=== PATIENT | male | born 1980 | race Two or more races ===

== ENCOUNTER 2020-05-03 11:39 | Outpatient (REF) | payer MEDICARE, MEDICAID, SELFPAY ==
--- NOTE | ~2020-05-03 | XR_ITS ---
EXAMINATION: XR SHOULDER, RIGHT CLINICAL INFORMATION: Right shoulder pain. COMPARISON: None TECHNIQUE: Four views of the right shoulder. FINDINGS: The bones and soft tissues are normal. No fracture. Glenohumeral and acromioclavicular alignment is anatomic with normal joint space. No abnormal soft tissue calcifications. XR/XR shoulder RT min 2V IMPRESSION: Normal right shoulder.
== END 2020-05-03 11:40 | disposition home or self-care (01) ==
LOC: HO.XRAY 11:39
PROVIDERS: PCP Internal Medicine; Visit Provider Internal Medicine
DX: M25.511 Pain in right shoulder (principal)
CPT/HCPCS: 73030

== ENCOUNTER 2020-06-27 07:37 | Outpatient (REF) | payer MEDICARE, MEDICAID, SELFPAY ==
--- NOTE | ~2020-06-27 | XR_ITS ---
EXAMINATION: XR HAND, RIGHT CLINICAL INFORMATION: Pain COMPARISON: Previous x-ray August 2019 TECHNIQUE: PA, lateral, and oblique views of the right hand. FINDINGS: Bone alignment is normal. No fracture or dislocation is seen. Joint spaces are normal. Soft tissues are normal. XR/XR hand RT min 3V IMPRESSION: Normal right hand.
== END 2020-06-27 07:38 | disposition home or self-care (01) ==
LOC: HO.HOSX 07:37
PROVIDERS: Visit Provider Physician Assistant
DX: R20.0 Anesthesia of skin (principal); R20.2 Paresthesia of skin
CPT/HCPCS: 73130; 99202

== ENCOUNTER 2020-07-13 13:15 | Outpatient (REF) | payer MEDICARE, MEDICAID, SELFPAY ==
[2020-07-16 17:06] LABS: TS Negative Control Passed; TS Panel A 0; TS Panel B 3; TS Positive Control Passed; TSpotTB Negative (SeeBelow)
== END 2020-07-13 13:16 | disposition home or self-care (01) ==
LOC: HO.LAB 13:15
PROVIDERS: PCP Internal Medicine; Visit Provider Internal Medicine
DX: Z11.1 Encounter for screening for respiratory tuberculosis (principal)
CPT/HCPCS: 36415; 86481

== ENCOUNTER 2020-08-02 10:05 | Outpatient (REF) | payer MEDICARE, MEDICAID, SELFPAY ==
[2020-08-02 11:02] LABS: MANUAL DIFF FLAG NO
[2020-08-02 11:19] LABS: Basophils Absolute Auto 0.1 X10*3/uL (0.0-0.2); Basophils Percent Auto 1.9 % (0-2); Eosinophils Absolute Auto 0.3 X10*3/uL (0.0-0.4); Eosinophils Percent Auto 6.3 % (0-4); Hematocrit 41.2 % (42-52); Hemoglobin 13.4 g/dl (14.0-18.0); Imm Gran Abs Auto 0.01 X10*3/uL (0.00-0.03); Imm Gran Pct Auto 0.2 % (0.0-0.4); Lymphocytes Absolute Auto 1.7 X10*3/uL (1.2-4.9); Lymphocytes Percent Auto 38.5 % (20-40); Mean Corpuscular HGB Conc 32.5 g/dl (31.0-36.0); Mean Corpuscular Hemoglobin 32.2 pg (27.0-33.0); Mean Platelet Volume 11.9 fL (9.4-12.4); Monocytes Absolute Auto 0.4 X10*3/uL (0.1-1.2); Monocytes Percent Auto 9.6 % (2-11); Neutrophils Absolute Auto 1.9 X10*3/uL (2.0-8.3); Neutrophils Percent Auto 43.5 % (45-73); Platelet Count 192 X10*3/uL (160-400); Red Blood Count 4.16 X10*6/uL (4.60-5.80); Red Cell Distribution Width 11.8 % (11.0-16.0); White Blood Count 4.3 X10*3/uL (4.8-10.8)
[2020-08-02 11:28] LABS: Alanine Aminotransferase 20 U/L (0-40); Albumin Level 4.5 g/dL (3.5-5.0); Alkaline Phosphatase 57 U/L (39-117); Anion Gap 12 (12-20); Aspartate Amino Transferase 22 U/L (5-37); Bilirubin Total 0.8 mg/dL (0.0-1.0); Blood Urea Nitrogen 25 mg/dL (9-16); Calcium 9.5 mg/dL (8.4-10.2); Carbon Dioxide 27 mmol/L (22-29); Chloride 106 mmol/L (96-108); Cholesterol 154 mg/dL; Estimated Glomerular Filt Rate > 60; Glucose Fasting 100 mg/dL (60-99); HDL Cholesterol 71 mg/dL; LDL Cholesterol Calculated 74 mg/dl; Potassium 4.7 mmol/L (3.3-5.1); Sodium 140 mmol/L (135-145); Total Protein 6.7 g/dL (6.5-8.0); Triglycerides 48 mg/dL
[2020-08-02 11:50] LABS: Thyroid Stimulating Hormone 0.61 uIU/mL (0.32-4.0)
== END 2020-08-02 10:06 | disposition home or self-care (01) ==
LOC: HO.LAB 10:05
PROVIDERS: PCP Internal Medicine; Visit Provider Internal Medicine
DX: Z00.00 Encounter for general adult medical examination without abnormal findings (principal); E03.9 Hypothyroidism, unspecified; E11.9 Type 2 diabetes mellitus without complications
CPT/HCPCS: 36415; 80053; 80061; 84443; 85025

== ENCOUNTER 2020-10-11 11:04 | Outpatient (REF) | payer MEDICARE, MEDICAID, SELFPAY ==
[2020-10-11 12:32] LABS: Erythrocyte Sedimentation Rate 2 MM/HR (0-15)
[2020-10-12 14:41] LABS: Lyme Abs Screen <0.90 index
== END 2020-10-11 11:05 | disposition home or self-care (01) ==
LOC: HO.LAB 11:04
PROVIDERS: PCP Internal Medicine; Visit Provider Internal Medicine
DX: M25.50 Pain in unspecified joint (principal)
CPT/HCPCS: 36415; 85652; 86617; 86618

== ENCOUNTER 2021-02-01 09:11 | Outpatient (REF) | payer MEDICARE, MEDICAID, SELFPAY ==
--- NOTE | ~2021-02-01 | XR_ITS ---
EXAMINATION: XR ELBOW, LEFT CLINICAL INFORMATION: Pain status post repetitive trauma COMPARISON: None TECHNIQUE: AP, lateral, and oblique views of the left elbow. FINDINGS: The bones and soft tissues are notable for prominent biceps muscle which should be correlated with physical exam. No fracture or joint effusion. Alignment is anatomic. Joint spaces are maintained. XR/XR elbow LT 2V IMPRESSION: No joint fluid osseous abnormality. Please note if a soft tissue injury is clinically suspected consider MRI.
== END 2021-02-01 09:12 | disposition home or self-care (01) ==
LOC: HO.XRAY 09:11
PROVIDERS: PCP Internal Medicine; Visit Provider Internal Medicine
DX: M25.522 Pain in left elbow (principal)
CPT/HCPCS: 73070

== ENCOUNTER 2021-02-21 10:34 | Outpatient (REF) | payer MEDICARE, MEDICAID, SELFPAY ==
[2021-02-21 11:42] LABS: Uric Acid 5.3 mg/dL (3.4-7.0)
== END 2021-02-21 10:35 | disposition home or self-care (01) ==
LOC: HO.LAB 10:34
PROVIDERS: Visit Provider Internal Medicine
DX: M10.9 Gout, unspecified (principal)
CPT/HCPCS: 36415; 84550

== ENCOUNTER 2021-03-28 07:11 | Outpatient (REF) | payer MEDICARE, MEDICAID, SELFPAY | END 2021-03-28 07:12 | disposition home or self-care (01) | LOC: HO.HOSX 07:11 | PROVIDERS: Visit Provider Physician Assistant | DX: Z13.89 Encounter for screening for other disorder (principal) ==

== ENCOUNTER → 2021-05-12 15:14 | Outpatient (BNVA) | payer MEDICARE, MEDICAID, SELFPAY | PROVIDERS: PCP Internal Medicine; Referring Provider Internal Medicine; Visit Provider Nurse Practitioner | DX: K21.9 Gastro-esophageal reflux disease without esophagitis (principal); F43.10 Post-traumatic stress disorder, unspecified | CPT/HCPCS: 99202 ==

== ENCOUNTER 2021-05-15 11:47 | Outpatient (REF) | payer MEDICARE, MEDICAID, SELFPAY ==
[2021-05-15 12:00] LABS: MANUAL DIFF FLAG NO
[2021-05-15 12:26] LABS: Basophils Absolute Auto 0.1 X10*3/uL (0.0-0.2); Basophils Percent Auto 1.5 % (0-2); Eosinophils Absolute Auto 0.1 X10*3/uL (0.0-0.4); Eosinophils Percent Auto 3.2 % (0-4); Hematocrit 39.9 % (42.0-52.0); Hemoglobin 12.9 g/dl (14.0-18.0); Imm Gran Abs Auto 0.01 X10*3/uL (0.00-0.03); Imm Gran Pct Auto 0.2 % (0.0-0.4); Lymphocytes Absolute Auto 1.7 X10*3/uL (1.2-4.9); Lymphocytes Percent Auto 42.4 % (20-40); Mean Corpuscular HGB Conc 32.3 g/dl (31.0-36.0); Mean Corpuscular Hemoglobin 31.5 pg (27.0-33.0); Mean Corpuscular Volume 97.3 fL (80.0-98.0); Mean Platelet Volume 11.8 fL (9.4-12.4); Monocytes Absolute Auto 0.4 X10*3/uL (0.1-1.2); Monocytes Percent Auto 8.6 % (2-11); Neutrophils Absolute Auto 1.8 x10*3/uL (2.0-8.3); Neutrophils Percent Auto 44.1 % (45-73); Platelet Count 173 X10*3/uL (160-400); Red Cell Distribution Width 11.9 % (11.0-16.0); White Blood Count 4.1 X10*3/uL (4.8-10.8)
[2021-05-15 13:14] LABS: Alanine Aminotransferase 20 U/L (0-40); Albumin Level 4.5 g/dL (3.5-5.0); Alkaline Phosphatase 52 U/L (39-117); Anion Gap 12 (12-20); Aspartate Amino Transferase 20 U/L (5-37); Bilirubin Total 0.6 mg/dL (0.0-1.0); Blood Urea Nitrogen 21 mg/dL (9-16); C Reactive Protein 0.08 mg/dL (< or = 0.50); Calcium 9.9 mg/dL (8.4-10.2); Carbon Dioxide 29 mmol/L (22-29); Chloride 105 mmol/L (96-108); Estimated Glomerular Filt Rate 55; Glucose Random 96 mg/dL (60-115); Lipase 32 U/L (8-78); Potassium 4.9 mmol/L (3.3-5.1); Sodium 141 mmol/L (135-145); Total Protein 6.8 g/dL (6.5-8.0)
[2021-05-15 13:21] LABS: TSH reflex Free T4 0.78 uIU/mL (0.32-4.0)
[2021-05-19 13:07] LABS: Transglutaminase Ab IgG <1.0 U/mL; Transglutaminase IgA <1.0 U/mL
== END 2021-05-15 11:48 | disposition home or self-care (01) ==
LOC: HO.LAB 11:47
PROVIDERS: PCP Internal Medicine; Visit Provider Nurse Practitioner
DX: Z01.82 Encounter for allergy testing (principal); K21.9 Gastro-esophageal reflux disease without esophagitis; R10.9 Unspecified abdominal pain; R14.0 Abdominal distension (gaseous)
CPT/HCPCS: 36415; 80053; 83690; 84443; 85025; 86003; 86140; 86364

== ENCOUNTER 2021-05-16 15:50 | Outpatient (REF) | payer MEDICARE, MEDICAID, SELFPAY ==
[2021-05-21 18:46] LABS: Pancreatic Elastase-1 >500 mcg/g
== END 2021-05-16 15:51 | disposition home or self-care (01) ==
LOC: HO.LNP 15:50
PROVIDERS: Visit Provider Nurse Practitioner
DX: R10.9 Unspecified abdominal pain (principal); R14.0 Abdominal distension (gaseous); K21.9 Gastro-esophageal reflux disease without esophagitis
CPT/HCPCS: 82656; 87338

== ENCOUNTER 2021-07-03 09:13 | Outpatient (REF) | payer MEDICARE, MEDICAID, SELFPAY ==
--- NOTE | ~2021-07-03 | US_ITS ---
EXAMINATION: US ABDOMEN COMPLETE CLINICAL INFORMATION: Unspecified abdominal pain. COMPARISON: Ultrasound abdomen complete 07/29/2016. CT abdomen and pelvis 07/29/2016. TECHNIQUE: Real-time imaging of the abdominal viscera. FINDINGS: PANCREAS: Normal. ABDOMINAL AORTA: The proximal, mid, and distal segments are normal in caliber. INFERIOR VENA CAVA: Visualized portions are normal. LIVER: Normal. The liver is normal in size. The liver contour is normal. Parenchymal echogenicity is normal. No focal hepatic lesion. There is no intrahepatic biliary duct dilatation seen. GALLBLADDER: Normal. The gallbladder is physiologically distended without evidence of stones, sludge, polyps, wall thickening or pericholecystic fluid. COMMON BILE DUCT: Normal in caliber measuring 0.4 cm in diameter. RIGHT KIDNEY: Normal. No hydronephrosis. No renal calculi or focal parenchymal lesions. The kidney measures 9.9 cm in maximum dimension. LEFT KIDNEY: Normal. No hydronephrosis. No renal calculi or focal parenchymal lesions. The kidney measures 10 cm in maximum dimension. SPLEEN: Normal. The spleen measures 10.4 cm in maximum dimension. FREE FLUID: None. US/US abdomen complete IMPRESSION: Normal abdominal ultrasound
== END 2021-07-03 09:14 | disposition home or self-care (01) ==
LOC: HO.US 09:13
PROVIDERS: Visit Provider Nurse Practitioner
DX: R10.9 Unspecified abdominal pain (principal); K21.9 Gastro-esophageal reflux disease without esophagitis; R14.0 Abdominal distension (gaseous)
CPT/HCPCS: 76700

== ENCOUNTER → 2021-07-13 11:41 | Outpatient (BNVA) | payer MEDICARE, MEDICAID, SELFPAY | PROVIDERS: PCP Internal Medicine; Referring Provider Internal Medicine; Visit Provider Nurse Practitioner | DX: K21.9 Gastro-esophageal reflux disease without esophagitis (principal); K59.04 Chronic idiopathic constipation; R14.0 Abdominal distension (gaseous); R10.9 Unspecified abdominal pain | CPT/HCPCS: 99212 ==

== ENCOUNTER → 2021-08-10 11:35 | Outpatient (BNVA) | payer MEDICARE, MEDICAID, SELFPAY | PROVIDERS: PCP Internal Medicine; Visit Provider Nurse Practitioner | DX: K59.04 Chronic idiopathic constipation (principal); R14.0 Abdominal distension (gaseous); K21.9 Gastro-esophageal reflux disease without esophagitis | CPT/HCPCS: 99212 ==

== ENCOUNTER → 2021-10-31 09:15 | Outpatient (BNVA) | payer MEDICARE, MEDICAID, SELFPAY | PROVIDERS: PCP Internal Medicine; Visit Provider Nurse Practitioner | DX: K60.2 Anal fissure, unspecified (principal) | CPT/HCPCS: 99212 ==

== ENCOUNTER → 2021-11-08 09:32 | Outpatient (BNVA) | payer MEDICARE, MEDICAID, SELFPAY | PROVIDERS: PCP Internal Medicine; Visit Provider Nurse Practitioner | DX: K60.2 Anal fissure, unspecified (principal) | CPT/HCPCS: 99212 ==

== ENCOUNTER → 2021-11-15 11:04 | Outpatient (BNVA) | payer MEDICARE, MEDICAID, SELFPAY | PROVIDERS: PCP Internal Medicine; Referring Provider Internal Medicine; Visit Provider Surgery | DX: K62.89 Other specified diseases of anus and rectum (principal) | CPT/HCPCS: 99202 ==

== ENCOUNTER 2022-07-01 16:05 | Emergency (ER) | payer MEDICARE, MEDICAID, SELFPAY ==
[2022-07-01 16:07] VITALS: BP 112/51; PULSE 62; RESP 16; TEMP 36.7; O2SAT 100; BMI 24.5
--- NOTE | 2022-07-01 16:09 | ED.GENADULT ---
HPI - General Adult General Chief complaint: Extremity Injury, Upper Stated complaint: hand injury Time Seen by Provider: 07/01/22 17:43 Source: patient Mode of arrival: ambulatory Limitations: no limitations History of Present Illness HPI narrative: 42 yold male presents to the ED for right thumb laceration. patient states his finger was cut by tin chicken shed on the roof. Patient denies any other trauma. patieint states uptodate with tetanus. patient states able to move all fingers and has sensation. Patient denies any head trauma. Related Data Home Medications Medication Instructions Recorded Confirmed ibuprofen 800 mg tablet 800 mg PO Q8H 11/15/21 11/15/21 Previous Rx's Medication Instructions Recorded cephalexin 500 mg capsule 500 mg PO QID 7 days #28 caps 07/01/22 Allergies Allergy/AdvReac Type Severity Reaction Status Date / Time No Known Allergies Allergy Verified 07/01/22 16:07 Review of Systems Review of Systems: Finger laceration Yes all other systems are reviewed and are negative [facility] Past Medical History Medical History (Updated 07/01/22 @ 18:32 by ERIC Nation) Anal pain GERD (gastroesophageal reflux disease) History of broken finger Pancreatitis Surgical History History of colonoscopy History of endoscopy No pertinent past surgical history Family History Family History Mother No problems noted. Father No problems noted. 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 Cognitive needs: No Hearing needs: No Vision needs: No Physical Exam ED Vital Signs: Vital Signs - 24 hr 07/01/22 16:07 Temperature 98.0 F Pulse Rate 62 Respiratory Rate 16 Blood Pressure 112/51 L Pulse Oximetry 100 Oxygen Delivery Method Room Air BMI result Body Mass Index 24.5 Const General: cooperative, healthy appearing, comfortable, no acute distress, well developed, alert, awake and Physically active Orientation/consciousness: oriented to person, oriented to place, oriented to time and patient oriented x3 [facility] Head: Yes normal to inspection, Yes No palpable skull fracture present, Yes normocephalic, Yes atraumatic and No abrasion Ears: hearing grossly normal bilaterally, external ears normal, TM's normal bilaterally, EAC's normal, mastoids normal and no periauricular adenopathy Eyes General: appearance normal, both eyes and all related structures Neck Neck: Yes normal visual inspection, Yes full ROM, Yes no lymphadenopathy, Yes no meningeal signs, Yes trachea midline, Yes supple, No anterior neck swelling and No tender Chest Chest palpation & inspection: normal inspection of the chest and normal palpation of entire chest wall Resp Effort & Inspection: normal respiratory effort and able to speak in complete sentences Auscultation: clear to auscultation bilaterally Cardio Jugular venous distension: no JVD Heart sounds: S1 normal heart sound present and S2 normal heart sound present GI Inspection: Yes normal to inspection and No abdominal wall ecchymosis Palpation (GI): Soft to palpation, not firm, nontender, no guarding and not rigid General: No CVA tenderness and Yes no CVA tenderness Back/Spine/Pelvis Back: no CVA tenderness, No CVA tenderness and No back tenderness Skin General skin exam: no rashes or lesions noted and elasticity normal Neuro General: oriented to person, oriented to place, oriented to time, patient oriented x3, gait normal, tone normal, moves all extremities, Normal light touch and pain sensation, no meningeal signs, no focal motor deficits, CN's II-XI intact bilaterally and normal sensation to monofilament Extrem General: Yes normal to inspection and Yes full ROM Hand/finger images: 1. Small laceration. Negative for signs of nerve or tendon injury. Negative for any deformities. Motor/neuro/vascular exam intact. Course Course Course Narrative: RME: 42 yold male presents to the ED for right thumb laceration caused by sharp object in a shed. patient states uptodate with tetanus. Patient to be examined in [facility]. Medications Administered Discontinued Medications Generic Name Dose Route Start Last Admin Trade Name Freq PRN Reason Stop Dose Admin Lidocaine HCl 2 ml 07/01/22 17:51 07/01/22 18:24 Lidocaine Hcl 2% 2 Ml Vial INFILTRATI 07/01/22 17:52 Not Given ONCE ONE Lidocaine HCl 2 ml 07/01/22 17:51 07/01/22 18:25 Lidocaine Hcl 2% 2 Ml Vial INFILTRATI 07/01/22 17:52 Not Given ONCE ONE Lidocaine HCl 2 ml 07/01/22 17:51 07/01/22 18:25 Lidocaine Hcl 2% 2 Ml Vial INFILTRATI 07/01/22 17:52 Not Given ONCE ONE Lidocaine HCl 2 ml 07/01/22 17:51 07/01/22 18:25 Lidocaine Hcl 2% 2 Ml Vial INFILTRATI 07/01/22 17:52 Not Given ONCE ONE Medical Decision Making Medical Decision Making MDM Narrative: 42-year-old male with right thumb laceration. Laceration caused by shed on roof. Patient denies any numbness and tingling in extremity. Patient denies any other trauma. Patient up-to-date with tetanus. Physical exam does not indicate any nerve or tendon injury of thumb. Laceration clean with sterile saline Betadine iodine. Size 3 nylon sutures used. Lidocaine 2% 3 mL used. Three stitches placed Differential Diagnosis Differential Diagnoses: The differential diagnosis associated with the presentation includes (Finger laceration, finger fracture, tendon injury, nerve injury, amputation) Prescription Management I considered prescription management with: Antibiotic Discharge Plan Discharge Clinical Impression: Finger laceration Patient Disposition: Home, Self-Care Instructions: Finger Laceration (ED) Additional Instructions: You will be discharged with antibiotics to prevent infection. Sutures should be removed in 9 days. Return to the ED immediately for any swelling, redness, pus discharge, foul odor, fever, chills, or any other concerning symptoms. Prescriptions: New cephalexin 500 mg capsule 500 mg PO QID 7 Days Qty: 28 0RF No Action ibuprofen 800 mg tablet 800 mg PO Q8H Discharge Date/Time: 07/01/22 18:36 Print Language: Bur[place]ian
== END 2022-07-01 18:36 | disposition home or self-care (01) ==
PROVIDERS: Emergency Provider Internal Medicine; PCP Internal Medicine
DX: S61.011A Laceration without foreign body of right thumb without damage to nail, initial encounter (principal); W26.8XXA Contact with other sharp object(s), not elsewhere classified, initial encounter; Y93.9 Activity, unspecified; Y92.9 Unspecified place or not applicable; Y99.9 Unspecified external cause status; Z79.899 Other long term (current) drug therapy
CPT/HCPCS: 12001; 99282; 99283

== ENCOUNTER 2022-08-08 14:18 | Emergency (ER) | payer MEDICARE, MEDICAID, SELFPAY ==
--- NOTE | ~2022-08-08 | XR_ITS ---
EXAMINATION: XR HAND, LEFT CLINICAL INFORMATION: Left thumb wound COMPARISON: None available. TECHNIQUE: PA, lateral, and oblique views of the left hand. FINDINGS: There appears to be a bandage overlying the thumb. Bones, joints and soft tissues are unremarkable. No evidence of radiopaque foreign body or soft tissue gas. No fracture, osseous erosion or periostitis. XR/XR hand LT min 3V IMPRESSION: Normal left hand. No evidence of osteomyelitis.
[2022-08-08 14:54] VITALS: BP 134/90; PULSE 76; RESP 16; TEMP 36.9; O2SAT 99; BMI 24.4
--- NOTE | 2022-08-08 14:58 | ED_ITS ---
HPI - Extremity Injury (Upper) General Chief Complaint: Wound/Laceration Stated Complaint: left hand checked out Time Seen by Provider: 08/08/22 15:12 Source: patient Mode of arrival: ambulatory Limitations: no limitations History of Present Illness HPI narrative: This is a 42-year-old male presenting with laceration to left thumb sustained 9 days ago, now having pain, swelling, difficulties with range of motion to left thumb, he reports he closed laceration using Steri-Strips, and took one dose of an unknown antibiotics that he had at home. Patient up-to-date on tetanus shot. He reports intermittent numbness and tingling however no numbness or tingling at this time. Patient tells me he sustained this laceration after cutting himself with A hatchet. Patient has not yet seen an orthopedic doctor. D enies fevers, chills, redness, chest pain, shortness of breath, headache, vision changes, dizziness and weakness Related Data Home Medications Medication Instructions Recorded Confirmed ibuprofen 800 mg tablet 800 mg PO Q8H 11/15/21 11/15/21 Previous Rx's Medication Instructions Recorded cephalexin 500 mg capsule 500 mg PO QID 7 days #28 caps 07/01/22 cephalexin 500 mg tablet 500 mg PO Q6H 10 days #40 tabs 08/08/22 doxycycline hyclate 100 mg capsule 100 mg PO BID 10 days #20 caps 08/08/22 Allergies Allergy/AdvReac Type Severity Reaction Status Date / Time No Known Allergies Allergy Verified 08/08/22 14:54 Review of Systems Review of Systems: Constitutional : No Weight loss, No Fever, No Chills, No Fatigue, No Malaise ENT/Mouth : No sore throat, No Rhinorrhea Eyes: No Eye Pain, No Swelling, No Redness Cardiovascular : No Chest Pain, No SOB, No Dyspnea on Exertion, No Orthopnea, No Edema, No Palpitations Respiratory : No Cough, No Sputum, No Wheezing Gastrointestinal : No Nausea, No Vomiting, No Diarrhea, No Constipation, No abdominal Pain, No Hematochezia, No Melena Genitourinary : No Dysuria, No Urinary Frequency, No Hematuria, Musculoskeletal : + joint pain, No Myalgias, + Joint Swelling Skin : No Skin Lesions, No rash Neuro : No Weakness, No Numbness, No Dizziness, No Headache Psych : No Anxiety/Panic, No Depression All other systems reviewed and are negative Yes all other systems are reviewed and are negative [facility] Past Medical History Attestation statement: The following information was validated with the patient. Source: old records reviewed and nursing notes reviewed Medical History (Updated 08/08/22 @ 16:16 by EIRC Burgess) Anal pain GERD (gastroesophageal reflux disease) History of broken finger Pancreatitis Surgical History History of colonoscopy History of endoscopy No pertinent past surgical history Family History Family History Mother No problems noted. Father No problems noted. 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 Oriented X3.? No acute distress.? Head: Normocephalic, atraumatic, no step-offs or deformities Eyes: Pupils equal, round and reactive to light.? ENT: Pharynx normal.? Neck: Normal inspection.? Neck supple.? CVS: Normal heart rate and rhythm.? Pulses normal.? Respiratory: No respiratory distress.? Breath sounds normal.? Abdomen: Soft and nontender.? Skin: Skin warm and dry.? Normal skin color.? Normal skin turgor.? + healing laceration 2 cm noted to L thumb with swelling > thenar eminence/1-2nd digit w/decreased ROM. No erythema or warmth. Neurovascular intact Extremities: No lower extremity edema.? No calf ttp. 5/5 strength to bilateral upper and lower extremities Neuro: Oriented X 3.? No motor deficit.? No sensory deficit. CN 2-12 intact Course Course Course Narrative: RME: 42yo M w/no sig PMHx c/o L thumb laceration s/p using hatchet blade 9 days ago. Admits fixed himself at home, however noted increased swelling and decreased ROM healing laceration noted to L thumb with swelling > thenar eminence/1-2nd digit w/decreased ROM. No erythema or warmth. Neurovascular intact X-ray, labs including ESR/CRP ordered Full HPI, ROS and PE to be performed by primary ED provider. Reevaluation(s) Reevaluation #1: CBC within normal limits. Normal ESR and CRP. Chemistry unremarkable. X-ray of left hand with normal left hand, no evidence of osteomyelitis. Will discharge patient home on doxycycline and Keflex will have him follow up with the orthopedic team. Will place him in a thumb spica splint. Educated patient on diagnosis and treatment plan, answered all question, patient verbalizes understanding. At this time patient will be discharged home, advised to return with new or worsening symptoms. Educated on worrisome signs and symptoms and when to return. At this time I feel comfortable discharge home. Time: 16:16 Medical Decision Making Medical Decision Making [facility] Narrative: 32-year-old male presents with laceration to left hand x9 days, healing, concerned with pain to left thumb, and decreased range of motion secondary to pain. physical exam significant for healing laceration 2 cm noted to L thumb with swelling > thenar eminence/1-2nd digit w/decreased ROM. No erythema or warmth. Neurovascular intact Likely healing laceration, concerns for possible ligament or tendon injury due to pain with range of motion. Unlikely necrotizing infection, tenosynovitis, no signs of neurovascular compromise or threatened limb. Unlikely septic joint, osteomyelitis or scaphoid fx Plan imaging Differential Diagnosis Differential Diagnoses: The differential diagnosis associated with the presentation includes Likely healing laceration, concerns for possible ligament or tendon injury due to pain with range of motion. Unlikely necrotizing infection, tenosynovitis, no signs of neurovascular compromise or threatened limb. Unlikely septic joint, osteomyelitis or scaphoid fx Admission/Observation Consideration of admission/observation: Escalation of care including admission/observation considered unlikely Lab Data [facility] Lab Attestation statement: I reviewed the patient's lab results. 08/08/22 15:09 08/08/22 15:09 Labs: Lab Results 08/08/22 08/08/22 Range/Units 15:09 15:09 WBC 5.7 (4.8-10.8) X10*3/uL RBC 3.99 L (4.60-5.80) X10*6/uL Hgb 12.9 L (14.0-18.0) g/dl Hct 38.5 L (42.0-52.0) % MCV 96.5 (80.0-98.0) fL MCH 32.3 (27.0-33.0) pg MCHC 33.5 (31.0-36.0) g/dl RDW 11.9 (11.0-16.0) % Plt Count 182 (160-400) X10*3/uL MPV 11.8 (9.4-12.4) fL Immature Gran % (Auto) 0.2 (0.0-0.4) % Neut % (Auto) 60.9 (45-73) % Lymph % (Auto) 28.5 (20-40) % Lander % (Auto) 7.2 (2-11) % Eos % (Auto) 2.3 (0-4) % Baso % (Auto) 0.9 (0-2) % Lymph # (Auto) 1.6 (1.2-4.9) X10*3/uL Lander # (Auto) 0.4 (0.1-1.2) X10*3/uL Eos # (Auto) 0.1 (0.0-0.4) X10*3/uL Baso # (Auto) 0.1 (0.0-0.2) X10*3/uL Abs Immat Gran (auto) 0.01 (0.00-0.03) X10*3/uL Absolute Neuts (auto) 3.5 (2.0-8.3) x10*3/uL Absolute Nucleated RBC 0.000 (0.0-0.012) X10*3/uL Nucleated RBC % (auto) 0.0 (0.0-0.2) /100WBC Sodium 141 (135-145) mmol/L Potassium 4.3 (3.3-5.1) mmol/L Chloride 107 (96-108) mmol/L Carbon Dioxide 27 (22-29) mmol/L Anion Gap 11 L (12-20) BUN 25 H (9-16) mg/dL Creatinine 1.19 (0.5-1.4) mg/dL Estim Creat Clear Calc 80.8 Estimated GFR > 60 Random Glucose 92 (60-115) mg/dL Calcium 9.6 (8.4-10.2) mg/dL Total Bilirubin 0.7 (0.0-1.0) mg/dL Direct Bilirubin 0.2 (0.0-0.5) mg/dL AST 19 (5-37) U/L ALT 14 (0-40) U/L Alkaline Phosphatase 49 (39-117) U/L C-Reactive Protein < 0.04 (< or = 0.50) mg/dL Total Protein 6.8 (6.5-8.0) g/dL Albumin 4.4 (3.5-5.0) g/dL Independent Interpretation I performed an independent interpretation of an: Plain X-Ray (XR/XR hand LT min 3V IMPRESSION: Normal left hand. No evidence of osteomyelitis.) Radiology Impression Discussion of test interpretation with radiology: I have reviewed the radiologist's reading. Core Measures AMI core measures followed: Yes Measure exclusions: not indicated Critical Care Time Critical Care Time Critical Care Time: No Discharge Plan Discharge Clinical Impression: Laceration of left hand, Hand pain, left, Laceration Patient Disposition: Home, Self-Care Instructions: Laceration (ED), Arthralgia (ED), Laceration Without Closure (ED) Additional Instructions: Take your medications as prescribed. If you were prescribed antibiotics today, it is important that you take your medication to their entirety, do not skip any doses, do not finish them early. Follow-up with your primary care provider this week. Follow up with Hand specialist CARLOS call first thing tomorrow morning to make an apt. Return to the emergency department with new or worsening symptoms. Such as fevers, chills, chest pain, shortness of breath, nausea, vomiting, dizziness, headache, vision changes, lethargy In case of emergency call 911 XR/XR hand LT min 3V IMPRESSION: Normal left hand. ? No evidence of osteomyelitis. Prescriptions: New doxycycline hyclate 100 mg capsule 100 mg PO BID 10 Days Qty: 20 0RF cephalexin 500 mg tablet 500 mg PO Q6H 10 Days Qty: 40 0RF No Action cephalexin 500 mg capsule 500 mg PO QID 7 Days Qty: 28 0RF ibuprofen 800 mg tablet 800 mg PO Q8H Referrals: Jaquan Gonsalez MD [Primary Care Provider] - 2 days Imelda Craig MD [Physician] - 1 day Stand Alone Forms: Work/School Release
[2022-08-08 15:16] LABS: MANUAL DIFF FLAG NO
[2022-08-08 15:18] LABS: Basophils Absolute Auto 0.1 X10*3/uL (0.0-0.2); Basophils Percent Auto 0.9 % (0-2); Eosinophils Absolute Auto 0.1 X10*3/uL (0.0-0.4); Eosinophils Percent Auto 2.3 % (0-4); Hematocrit 38.5 % (42.0-52.0); Hemoglobin 12.9 g/dl (14.0-18.0); Imm Gran Abs Auto 0.01 X10*3/uL (0.00-0.03); Imm Gran Pct Auto 0.2 % (0.0-0.4); Lymphocytes Absolute Auto 1.6 X10*3/uL (1.2-4.9); Lymphocytes Percent Auto 28.5 % (20-40); Mean Corpuscular HGB Conc 33.5 g/dl (31.0-36.0); Mean Corpuscular Hemoglobin 32.3 pg (27.0-33.0); Mean Corpuscular Volume 96.5 fL (80.0-98.0); Mean Platelet Volume 11.8 fL (9.4-12.4); Monocytes Absolute Auto 0.4 X10*3/uL (0.1-1.2); Monocytes Percent Auto 7.2 % (2-11); Neutrophils Absolute Auto 3.5 x10*3/uL (2.0-8.3); Neutrophils Percent Auto 60.9 % (45-73); Platelet Count 182 X10*3/uL (160-400); Red Blood Count 3.99 X10*6/uL (4.60-5.80); Red Cell Distribution Width 11.9 % (11.0-16.0); White Blood Count 5.7 X10*3/uL (4.8-10.8)
[2022-08-08 15:37] LABS: Alanine Aminotransferase 14 U/L (0-40); Albumin Level 4.4 g/dL (3.5-5.0); Alkaline Phosphatase 49 U/L (39-117); Anion Gap 11 (12-20); Aspartate Amino Transferase 19 U/L (5-37); Bilirubin Direct 0.2 mg/dL (0.0-0.5); Bilirubin Total 0.7 mg/dL (0.0-1.0); Blood Urea Nitrogen 25 mg/dL (9-16); C Reactive Protein < 0.04 mg/dL (< or = 0.50); Calcium 9.6 mg/dL (8.4-10.2); Carbon Dioxide 27 mmol/L (22-29); Chloride 107 mmol/L (96-108); Creatinine Clr Calc Pharmacy 80.8; Estimated Glomerular Filt Rate > 60; Glucose Random 92 mg/dL (60-115); Potassium 4.3 mmol/L (3.3-5.1); Sodium 141 mmol/L (135-145); Total Protein 6.8 g/dL (6.5-8.0)
[2022-08-08 15:58] LABS: Erythrocyte Sedimentation Rate 2 MM/HR (0-15)
== END 2022-08-08 16:51 | disposition home or self-care (01) ==
PROVIDERS: Physician Assistant; Emergency Provider Emergency Medicine; PCP Internal Medicine
DX: S61.012A Laceration without foreign body of left thumb without damage to nail, initial encounter (principal); M79.642 Pain in left hand; X58.XXXA Exposure to other specified factors, initial encounter; Y93.9 Activity, unspecified; Y92.009 Unspecified place in unspecified non-institutional (private) residence as the place of occurrence of the external cause; Y99.9 Unspecified external cause status; Z79.899 Other long term (current) drug therapy
CPT/HCPCS: 36415; 73130; 80048; 80076; 85025; 85652; 86140; 99283

== ENCOUNTER → 2022-08-15 11:13 | Outpatient (BNVA) | payer MEDICARE, MEDICAID, SELFPAY | PROVIDERS: PCP Internal Medicine; Visit Provider Physician Assistant | DX: S61.012A Laceration without foreign body of left thumb without damage to nail, initial encounter (principal) | CPT/HCPCS: 99202 ==

== ENCOUNTER → 2022-08-20 09:56 | Outpatient (BNVA) | payer MEDICARE, MEDICAID, SELFPAY | PROVIDERS: PCP Internal Medicine; Visit Provider Physician Assistant ==

== ENCOUNTER 2022-08-29 14:46 | Outpatient (AMB) | payer MEDICARE, MEDICAID, SELFPAY ==
--- NOTE | 2022-08-29 14:50 | MHC.OFFVIS ---
Intake Vital Signs 08/29/22 14:53 Height 5 ft 9 in Weight 162 lb BMI 23.9 Intake Visit Reasons: OV-c/o L thumb laceration-wound check Intake Note: Jamari is a 42 year old right hand dominant male who presents today for a follow up of left thumb laceration, DOI 07/31/22. Patient reports improvement since his last visit but has some concerns of lump near incision site. He states pain comes from certain movements of thumb. Allergies No Known Allergies Allergy (Verified 08/29/22 14:55) HPI OV-c/o L thumb laceration-wound check HPI Details 42-year-old right hand dominant male who returns to the office today for a follow-up of left thumb laceration, 07/31/22. He states he has pain in his thumb with certain movements and he c/o a lump near the incision site. He is doing well otherwise and has no concerns today. [facility] Medical History Anal pain GERD (gastroesophageal reflux disease) History of broken finger Pancreatitis Surgical History History of colonoscopy History of endoscopy No pertinent past surgical history Family History Mother No problems noted. Father No problems noted. 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 Cognitive needs: No Hearing needs: No Vision needs: No Review of Systems Const All systems reviewed & are unremarkable except as noted in HPI and below Physical Exam Vital Signs: BMI result Body Mass Index 23.9 Const General: cooperative, healthy appearing, comfortable, no acute distress, well developed and alert Orientation/consciousness: patient oriented x3 HEENT Head: Yes normal to inspection, Yes normocephalic and Yes atraumatic Eyes General: appearance normal, both eyes and all related structures Resp Effort & Inspection: normal respiratory effort and able to speak in complete sentences Cardio Rate: regular rate Peripheral pulses: Peripheral pulses 2+ throughout GI Palpation (GI): Soft to palpation Skin Lesions: no lesions Rashes: no rashes Neuro General: patient oriented x3 Extrem Other: Left thumb: Normal to inspection. well healed laceration over the dorsal aspect of the MCP joint. There is no opening of the wound, no surrounding erythema or drainage. He is able to flex the thumb at the MCP and IP joint. He is able to perform opposition. He does have some weakness with abduction that has improved since last visit. NVI. Assessment & Plan Assessment & Plan (1) Laceration of left thumb: Code(s): S61.012A - Laceration without foreign body of left thumb without damage to nail, initial encounter Plan He will increase activity as tolerated working on ROM and knife changer strength. If symptoms persist or worsens, patient will contact the office, otherwise follow-up as needed. Patient Instructions: Scribed for Anup Matos PA-C, by Alexandr Kincaid medical aides teacher, on 08/29/2022 at 2:45 PM EST. IAnup PA-C, have personally reviewed and agree with the information entered by the scribe. Coding Level of Care Code Est Pt Level 3 (65099) Diagnoses Laceration of left thumb S61.012A
[2022-08-29 14:53] VITALS: BMI 23.9
== END 2022-08-29 15:17 | disposition home or self-care (01) ==
PROVIDERS: PCP Internal Medicine; Visit Provider Physician Assistant
DX: S61.012D Laceration without foreign body of left thumb without damage to nail, subsequent encounter (principal)
CPT/HCPCS: 99212

== ENCOUNTER → 2022-08-29 14:46 | Outpatient (BNVA) | payer MEDICARE, MEDICAID, SELFPAY | PROVIDERS: PCP Internal Medicine; Visit Provider Physician Assistant ==

== ENCOUNTER 2022-12-11 11:39 | Outpatient (AMB) | payer MEDICARE, MEDICAID, SELFPAY ==
[2022-12-11 11:42] VITALS: BP 118/64; PULSE 55; O2SAT 99; BMI 25.1
--- NOTE | 2022-12-11 11:42 | A.OFFPC_ITS ---
Vital Signs 12/11/22 11:42 Height 5 ft 9 in Weight 170 lb BMI 25.1 BP 118/64 Blood Pressure Location Lt brachial Position Sitting Pulse 55 Pulse Source Pulse Oximeter Pulse Oximetry (%) 99 Oxygen Delivery Method Room Air Intake Visit Reasons: leg and hip pain Measurement Psychologist: Not Required per policy Accompanied by: Self / Same As Patient Allergies No Known Allergies Allergy (Verified 12/11/22 11:42) Medication List - Last Reconciled 12/12/22 by Jaquan Gonsalez MD azithromycin take 500 mg today (day 1), then 250 mg for 4 days (days 2-5) PO Tobacco use date assessed: 08/17/22 Dental Screening Dental Screen Date: 12/11/22 Did you have a dental visit in the last 12 months?: Yes Did you have a dental problem in the last 6 months where you did not have access to dental care?: No Was dental information given to patient?: Patient has dentist HPI leg and hip pain HPI Details swollen lymph nodes right groin; pt very concerned; request heme consult [facility] Medical History Anal pain Pancreatitis GERD (gastroesophageal reflux disease) History of broken finger Surgical History History of endoscopy History of colonoscopy No pertinent past surgical history Family History Mother No problems noted. Father No problems noted. 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 1. Little interest or pleasure in doing things: not at all 2. Feeling down, depressed, or hopeless: not at all 3. Trouble falling or staying asleep, or sleeping too much: not at all 4. Feeling tired or having little energy: not at all 5. Poor appetite or overeating: not at all 6. Feeling bad about yourself - or that you are a failure or have let yourself or your family down: not at all 7. Trouble concentrating on things, such as reading the newspaper or watching television: not at all 8. Moving or speaking so slowly that other people could have noticed. Or the opposite - being so fidgety or restless that you have been moving around a lot more than usual: not at all 9. Thoughts that you would be better off or of hurting yourself in some wa y: not at all Total score: 0 Depression Screening Interpretation: Negative Depression Screening Done: Yes Source: Developed by Drs. Asif Funez, Stacie Weinberg, Abrahan Delgado and colleagues, with an educational charity from [employer]. Thrive Questionnaire Date Thrive assessed: 08/17/22 AUDIT C Alcohol Use Questionnaire (AUDIT-C) 1. How often do you have a drink containing alcohol?: Monthly or less 2. How many drinks containing alcohol do you have on a typical day when you are drinking?: 1 or 2 Total Score: 1 DELORES-7 AMB Questionnaire DELORES-7 Date DELORES - 7 assessed: 08/17/22 Source: Developed by Drs. Asif Funez, Stacie Weinberg, Abrahan Delgado and colleagues, with an educational charity from [employer]. Review of Systems Const Denies chills, Denies headache(s) and Denies weight loss ENT Denies headache(s) Card Denies chest pain, Denies syncope, Denies irregular heart rhythm and Denies dyspnea Resp Denies chest congestion, Denies cough and Denies dyspnea GI Denies abdominal pain, Denies change in stool character, Denies nausea and Denies vomiting Musc Denies deformity and Denies joint swelling Neuro Denies syncope and Denies headache(s) Physical exam (Primary Care) Vital Signs: Last Vital Signs Pulse 55 12/11/22 11:42 BP 118/64 12/11/22 11:42 Pulse Ox 99 12/11/22 11:42 Oxygen Delivery Method Room Air 12/11/22 11:42 BMI result Body Mass Index 25.1 Tobacco/Smoking Status: Tobacco use Status Tobacco use date assessed 08/17/22 12/11/22 11:47 Patient Tobacco Use Status Never used Tobacco 12/11/22 11:47 e-Cigarette/Vaping Use Never Used 12/11/22 11:47 PHQ-9: PHQ-9 Score PHQ-9: Total score 0 12/11/22 11:47 Depression Screening Interpretation: Negative Thrive Assessment: Date of Thrive Assessment Date Thrive assessed 08/17/22 12/11/22 11:47 Const General: cooperative, comfortable, no acute distress and alert Neck Neck: Yes no lymphadenopathy Thyroid: Thyroid normal Resp Effort & Inspection: normal respiratory effort Auscultation: clear to auscultation bilaterally Percussion: percussion normal Cardio Jugular venous distension: no JVD Palpation: normal PMI Rate: regular rate Rhythm: regular rhythm Heart sounds: S1 normal heart sound present and S2 normal heart sound present GI Inspection: Yes normal to inspection Palpation (GI): No hepatosplenomegaly present Skin General skin exam: no rashes or lesions noted Extrem Other: shotty right groin adenopath General: Yes no clubbing, cyanosis or edema Assessment and Plan Assessment & Plan (1) Inguinal lymphadenopathy: Code(s): R59.0 - Localized enlarged lymph nodes Plan: lab and referral Orders: Orders Complete Blood Count Auto Diff 12/11/22 D64.9 - Anemia, unspecified Referrals Hematology & Oncology Referral R59.0 - Localized enlarged lymph nodes Medications: New azithromycin take 500 mg today (day 1), then 250 mg for 4 days (days 2-5) PO 6 tabs 0RF Coding Level of Care Code Est Pt Level 3 (65099) Diagnoses Inguinal lymphadenopathy R59.0
== END 2022-12-11 11:53 | disposition home or self-care (01) ==
PROVIDERS: PCP Internal Medicine; Visit Provider Internal Medicine
DX: R59.0 Localized enlarged lymph nodes (principal)
CPT/HCPCS: 99213

== ENCOUNTER 2022-12-17 11:29 | Outpatient (REF) | payer MEDICARE, MEDICAID, SELFPAY ==
[2022-12-17 11:51] LABS: MANUAL DIFF FLAG NO
[2022-12-17 12:19] LABS: Basophils Percent Auto 0.8 % (0-2); Eosinophils Absolute Auto 0.1 X10*3/uL (0.0-0.4); Eosinophils Percent Auto 1.7 % (0-4); Hematocrit 40.6 % (42.0-52.0); Hemoglobin 13.3 g/dl (14.0-18.0); Imm Gran Abs Auto 0.01 X10*3/uL (0.00-0.03); Imm Gran Pct Auto 0.2 % (0.0-0.4); Lymphocytes Absolute Auto 1.4 X10*3/uL (1.2-4.9); Lymphocytes Percent Auto 29.5 % (20-40); Mean Corpuscular HGB Conc 32.8 g/dl (31.0-36.0); Mean Corpuscular Volume 97.6 fL (80.0-98.0); Mean Platelet Volume 11.8 fL (9.4-12.4); Monocytes Absolute Auto 0.4 X10*3/uL (0.1-1.2); Monocytes Percent Auto 8.6 % (2-11); Neutrophils Absolute Auto 2.8 x10*3/uL (2.0-8.3); Neutrophils Percent Auto 59.2 % (45-73); Platelet Count 183 X10*3/uL (160-400); Red Blood Count 4.16 X10*6/uL (4.60-5.80); Red Cell Distribution Width 11.8 % (11.0-16.0); White Blood Count 4.7 X10*3/uL (4.8-10.8)
== END 2022-12-17 11:30 | disposition home or self-care (01) ==
LOC: HO.LAB 11:29
PROVIDERS: PCP Internal Medicine; Visit Provider Internal Medicine
DX: D64.9 Anemia, unspecified (principal)
CPT/HCPCS: 36415; 85025

== ENCOUNTER 2023-01-08 15:51 | Outpatient (REF) | payer MEDICARE, MEDICAID, SELFPAY ==
--- NOTE | ~2023-01-08 | US_ITS ---
EXAMINATION: US RIGHT INGUINAL SOFT TISSUES CLINICAL INFORMATION: Right inguinal lymphadenopathy and pain. COMPARISON: None available. TECHNIQUE: Ultrasound of the right inguinal region is performed using a linear transducer with grayscale and color modalities. FINDINGS: The cutaneous, subcutaneous, muscular and fascial planes are unremarkable. Reniform lymph nodes are seen, the 2 largest measuring 1.7 x 0.6 x 0.6 cm and 2.1 x 0.5 x 0.9 cm. These show good corticomedullary differentiation, no focal cortical thickening and vascular sowmya. No mass or fluid collection is seen. US/US extremity nonvascular IMPRESSION: Mildly prominent, nonpathologically enlarged right inguinal lymph nodes are seen, as detailed. These are nonspecific and should be managed on a clinical basis.
== END 2023-01-08 15:52 | disposition home or self-care (01) ==
LOC: HO.US 15:51
PROVIDERS: PCP Internal Medicine; Visit Provider Internal Medicine
DX: R59.0 Localized enlarged lymph nodes (principal)
CPT/HCPCS: 76882

== ENCOUNTER → 2023-01-25 09:52 | Outpatient (BNV) | payer MEDICARE, MEDICAID, SELFPAY | PROVIDERS: PCP Internal Medicine; Visit Provider Internal Medicine | DX: R59.1 Generalized enlarged lymph nodes (principal) | CPT/HCPCS: 99204 ==

== ENCOUNTER 2023-04-05 10:16 | Outpatient (AMB) | payer MEDICARE, MEDICAID, SELFPAY ==
[2023-04-05 10:21] VITALS: BP 108/60; PULSE 65; O2SAT 99; BMI 24.2
--- NOTE | 2023-04-05 10:21 | A.OFFPC_ITS ---
Vital Signs 04/05/23 10:21 Height 5 ft 10 in Weight 169 lb BMI 24.2 BP 108/60 Blood Pressure Location Lt brachial Position Sitting Pulse 65 Pulse Source Pulse Oximeter Pulse Oximetry (%) 99 Oxygen Delivery Method Room Air Intake Visit Reasons: Sinus Infection Recorder Helper Seismograph Required: No [place] Operator: Not Required per policy Accompanied by: Self / Same As Patient Allergies No Known Allergies Allergy (Verified 04/05/23 10:22) Medication List - Last Reconciled 04/05/23 by Jaquan Gonsalez MD amoxicillin-pot clavulanate 500-125 mg (Augmentin) 1 tab PO BID Tobacco use date assessed: 04/05/23 Dental Screening Dental Screen Date: 04/05/23 Did you have a dental visit in the last 12 months?: Yes Did you have a dental problem in the last 6 months where you did not have access to dental care?: No Was dental information given to patient?: Patient has dentist HPI Sinus Infection HPI Details pressure over max sinuses and congestion for a week PFSH Medical History (Updated 01/25/23 @ 10:58 by Lucretia Thompson MD) Post traumatic stress disorder (PTSD) Anal pain Pancreatitis GERD (gastroesophageal reflux disease) History of broken finger Surgical History History of endoscopy History of colonoscopy No pertinent past surgical history Family History Mother No problems noted. Father No problems noted. 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 1. Little interest or pleasure in doing things: not at all 2. Feeling down, depressed, or hopeless: not at all 3. Trouble falling or staying asleep, or sleeping too much: not at all 4. Feeling tired or having little energy: not at all 5. Poor appetite or overeating: not at all 6. Feeling bad about yourself - or that you are a failure or have let yourself or your family down: not at all 7. Trouble concentrating on things, such as reading the newspaper or watching television: not at all 8. Moving or speaking so slowly that other people could have noticed. Or the opposite - being so fidgety or restless that you have been moving around a lot more than usual: not at all 9. Thoughts that you would be better off or of hurting yourself in some way: not at all Total score: 0 Depression Screening Interpretation: Negative Depression Screening Done: Yes Source: Developed by Drs. Asif Funez, Stacie Weinberg, Abrahan Delgado and colleagues, with an educational charity from [employer]. Thrive Questionnaire Date Thrive assessed: 04/05/23 I am a: Patient What is your living situation today?: I have a steady place to live Within the past 12 months, did the food you bought not last and you didn't have the money to get more?: Never true Within the past 12 months, did you worry whether your food would run out before you got money to buy more?: Never true Do you have trouble paying for medicines?: No Do you have trouble getting transportation to medical appointments?: No Do you have trouble paying your heating and electricity bill?: No Do you have trouble taking care of your child, family member or friend?: No Do you have trouble with day-to-day activities such as bathing, preparing meals, shopping, managing finances, etc.?: No Are you currently unemployed and looking for a job?: No Are you interested in more education?: No Please select the resources that you would like help with: None THRIVE Score: 0 AUDIT C Alcohol Use Questionnaire (AUDIT-C) 1. How often do you have a drink containing alcohol?: Monthly or less 2. How many drinks containing alcohol do you have on a typical day when you are drinking?: 1 or 2 Total Score: 1 DELORES-7 AMB Questionnaire DELORES-7 Date DELORES - 7 assessed: 04/05/23 Feeling nervous, anxious, or on edge: 0 = Not at all Not being able to stop or control worryin = Not at all Worrying too much about different things: 0 = Not at all Trouble relaxin = Not at all Being so restless that it is hard to sit still: 0 = Not at all Becoming easily annoyed or irritable: 0 = Not at all Feeling afraid as if something awful might happen: 0 = Not at all Total DELORES-7 score (0-4 normal; 5-9 mild; 10-14 moderate; 15-21 severe): 0 Source: Developed by Drs. Asif Funez, Stacie Weinberg, Abrahan Delgado and colleagues, with an educational charity from [employer]. Review of Systems Const Denies chills, Denies headache(s) and Denies weight loss ENT Denies headache(s) Card Denies chest pain, Denies syncope, Denies irregular heart rhythm and Denies dyspnea Resp Denies chest congestion, Denies cough and Denies dyspnea GI Denies abdominal pain, Denies change in stool character, Denies nausea and Denies vomiting Musc Denies deformity and Denies joint swelling Neuro Denies syncope and Denies headache(s) Physical exam (Primary Care) Vital Signs: Last Vital Signs Pulse 65 04/05/23 10:21 BP 108/60 04/05/23 10:21 Pulse Ox 99 04/05/23 10:21 Oxygen Delivery Method Room Air 04/05/23 10:21 BMI result Body Mass Index 24.2 Tobacco/Smoking Status: Tobacco use Status Tobacco use date assessed 04/05/23 04/05/23 10:23 Patient Tobacco Use Status Never used Tobacco 04/05/23 10:23 e-Cigarette/Vaping Use Never Used 04/05/23 10:23 PHQ-9: PHQ-9 Score PHQ-9: Total score 0 04/05/23 10:23 Depression Screening Interpretation: Negative Thrive Assessment: Date of Thrive Assessment Date Thrive assessed 04/05/23 04/05/23 10:23 Const General: cooperative, comfortable, no acute distress and alert Neck Neck: Yes no lymphadenopathy Thyroid: Thyroid normal Resp Effort & Inspection: normal respiratory effort Auscultation: clear to auscultation bilaterally Percussion: percussion normal Cardio Jugular venous distension: no JVD Palpation: normal PMI Rate: regular rate Rhythm: regular rhythm Heart sounds: S1 normal heart sound present and S2 normal heart sound present GI Inspection: Yes normal to inspection Palpation (GI): No hepatosplenomegaly present Skin General skin exam: no rashes or lesions noted Extrem General: Yes no clubbing, cyanosis or edema Assessment and Plan Assessment & Plan (1) Sinusitis: Code(s): J32.9 - Chronic sinusitis, unspecified Plan: rx sent Medications: New amoxicillin-pot clavulanate 500-125 mg (Augmentin) 1 tab PO BID 10 tabs 0RF Coding Level of Care Code Est Pt Level 3 (12951) Diagnoses Sinusitis J32.9
== END 2023-04-05 10:35 | disposition home or self-care (01) ==
PROVIDERS: PCP Internal Medicine; Visit Provider Internal Medicine
DX: J32.9 Chronic sinusitis, unspecified (principal)
CPT/HCPCS: 99213

== ENCOUNTER 2023-04-15 10:13 | Outpatient (AMB) | payer MEDICARE, MEDICAID, SELFPAY ==
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
[2023-04-15 10:30] VITALS: BMI 24.2
== END 2023-04-15 11:18 | disposition home or self-care (01) ==
PROVIDERS: PCP Internal Medicine; Visit Provider Physician Assistant
DX: M25.561 Pain in right knee (principal)
CPT/HCPCS: 99213

== ENCOUNTER 2023-04-15 15:54 | Outpatient (REF) | payer MEDICARE, MEDICAID, SELFPAY ==
--- NOTE | ~2023-04-15 | XR_ITS ---
EXAMINATION: XR AP STANDING BILATERAL KNEES XR RIGHT KNEE CLINICAL INFORMATION: Pain in right knee. COMPARISON: 10/28/2019 TECHNIQUE: AP standing view of the right knee. 2 views of the right. FINDINGS: Right Knee: Trace joint effusion. Mild medial joint space narrowing with minimal medial marginal spurring. Left Knee: Minimal degenerative changes in the medial compartment. XR/XR knee standing BI IMPRESSION: Mild degenerative changes right knee. Minimal degenerative changes left knee.
--- NOTE | ~2023-04-15 | XR_ITS ---
EXAMINATION: XR AP STANDING BILATERAL KNEES XR RIGHT KNEE CLINICAL INFORMATION: Pain in right knee. COMPARISON: 10/28/2019 TECHNIQUE: AP standing view of the right knee. 2 views of the right. FINDINGS: Right Knee: Trace joint effusion. Mild medial joint space narrowing with minimal medial marginal spurring. Left Knee: Minimal degenerative changes in the medial compartment. XR/XR knee RT 2V IMPRESSION: Mild degenerative changes right knee. Minimal degenerative changes left knee.
== END 2023-04-15 15:55 | disposition home or self-care (01) ==
LOC: HO.HOSX 15:54
PROVIDERS: Visit Provider Physician Assistant
DX: M25.562 Pain in left knee (principal); M25.561 Pain in right knee
CPT/HCPCS: 73560; 73565; 99212

== ENCOUNTER 2023-04-25 08:44 | Outpatient (AMB) | payer MEDICARE, MEDICAID, SELFPAY ==
--- NOTE | 2023-04-25 08:46 | A.OFFVIS_ITS ---
Intake Vital Signs 04/25/23 08:47 Height 5 ft 10 in Weight 175 lb 0.752 oz BMI 25.1 BP 133/72 Blood Pressure Location Lt brachial Position Sitting Pulse 66 Intake Visit Reasons: Abdominal pain Intake Note: Patient presents to in office visit today with c/o abdominal pain. CC: Patient c/o pain with BMs, abdominal pain, and blood in the stools the last days. Patient denies constipation and reports BM every day sometimes twice a day . He reports occasional nausea and a lot of gas. He states that he thinks there's a correlation with the problems he is having with his stomach and the issues he is having with his joints. 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 He has also tried OTC lotrimen cream, as he has a hx of sinan rashes of the scrotum. This is fine, as he is alternating them and he feels the area is getting smaller. He still has pain with BM's which would be expected. ROV prn. TODAYS VISIT APPARENTLY HE IS HERE TODAY FOR A NEW COMPLAINT OF RECTAL BLEEDING WITH AB DOMINAL PAIN AND JOINT PAINS. He shows me pictures of his stools with varying amt of BRB in the stools. He feels that taking a pepcid or a gas pill helps his joint pains. He will have pain across the abd in the am when he has to move his bowels. His BM's have been larger than usual and he feels like gonzales may have another fissure. He has concerns with upper abd pain as well as well lower abdominal pain as above, he is also concerned about a concavity in his upper abdomen that does not seem to respond to diet or exercise. At this point we are going to get the following studies a CT scan of the abdomen and pelvis to see if there is anything like diverticulitis, a slew inflammatory markers including a workup for potential inflammatory arthritis and for inflammatory bowel disease despite the fact that he has not having out right diarrhea, a fecal calprotectin, a RAST allergy panel because of the great deal of bloating, and an EGD/colonoscopy. At this time at least for the moment it seems like the bleeding is subsiding. He tried using the nifedipine Ajay cream but it really burned in irritated his buttocks. For now I encouraged him just to try the hemorrhoid cream as that is likely more soothing. I am really uncertain if there is any new intervention in terms of medication that I can start right now until I have more information. He denies any cardiac or respiratory problems. There are no prior problems with anesthesia or sedation. There are no infectious disease problems. There is no known family history of colon cancer or colon polyps. Return office visit in 3 weeks. [facility] Medical History Post traumatic stress disorder (PTSD) Anal pain Pancreatitis GERD (gastroesophageal reflux disease) History of broken finger Surgical History History of endoscopy History of colonoscopy No pertinent past surgical history Family History Mother No problems noted. Father No problems noted. 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 Cognitive needs: No Hearing needs: No Vision needs: No Review of Systems Const Denies fatigue, Denies fever(s), Denies night sweats, Denies poor appetite and Denies weight loss ENT Reports Normal hearing present, Denies dental pain, Denies dysphagia, Denies hearing loss, Denies mouth pain, Denies odynophagia, Denies throat swelling, Denies tongue swelling and Reports other (Dentition adequate) Card Reports no additional complaints Resp Reports no additional complaints GI Details: Reports abdominal pain, Denies melena, Reports bloating, Denies hematochezia, Reports constipation, Denies GI cramping, Denies dysphagia, Denies excessive flatus, Denies early satiety, Denies heartburn, Denies diarrhea, Reports nausea, Denies odynophagia, Denies vomiting and Denies hematemesis Musc Reports back pain and Reports arthralgias Skin/Breast Denies pruritus, Denies lesions, Denies rash and Denies jaundice Neuro Reports Normal hearing present and Denies Abnormal speech present Psych Reports anxiety Endo Denies fatigue Aller/Immun Denies throat swelling and Denies tongue swelling Physical Exam Vital Signs: Last Vital Signs Pulse 66 04/25/23 08:47 BP 133/72 04/25/23 08:47 BMI result Body Mass Index 25.1 Const General: cooperative, no acute distress, well developed and well groomed Nutritional Appearance: average body habitus and well nourished Orientation/consciousness: oriented to person, oriented to place and oriented to time Limitations: No language barrier HEENT Head: Yes normocephalic and Yes atraumatic Eyes General: appearance normal, both eyes and all related structures Pupils: Equal, round and reactive pupils present Neck Neck: Yes normal visual inspection and Yes no lymphadenopathy Thyroid: Thyroid normal Resp Effort & Inspection: normal respiratory effort and able to speak in complete sentences Auscultation: clear to auscultation bilaterally Cardio Rate: regular rate Rhythm: regular rhythm Heart sounds: Normal, physiologic split S2 sound present Peripheral pulses: radial pulses present and posterior tibial pulses present GI Inspection: No distended and No Abdominal panniculus present Palpation (GI): Soft to palpation, nontender, no guarding, not rigid and No hepatosplenomegaly present Percussion: Yes normal to percussion Auscultation: normal bowel sounds Rectal Exam - Male: Yes deferred Skin General skin exam: no rashes or lesions noted, turgor normal, skin not dry, no jaundice, No spider nevi and no striae Rashes: no rashes Nails: normal Neuro General: oriented to person, oriented to place and oriented to time Cranial nerves: Yes Equal, round and reactive pupils present and Yes Normal hearing present Speech: No Abnormal speech present Extrem General: Yes normal to inspection, No clubbing, No cyanosis and No edema Psych Appearance: grossly normal and well kempt Mental Status: mental status grossly normal Speech and movement: Normal speech and movement present Affect: Anxious affect present Attitude: cooperative Thought process: Normal thought process present and not confabulating Thought content: Normal thought content present Insight: Limited insight present (Psych) Judgement: Limited judgement present (Psych) Assessment & Plan Assessment & Plan (1) Arthralgia: Code(s): M25.50 - Pain in unspecified joint (2) Bloating symptom: Code(s): R14.0 - Abdominal distension (gaseous) (3) Abdominal pain: Code(s): R10.9 - Unspecified abdominal pain (4) Pre-op examination: Code(s): Z01.818 - Encounter for other preprocedural examination (5) Rectal bleeding: Code(s): K62.5 - Hemorrhage of anus and rectum Plan APPARENTLY HE IS HERE TODAY FOR A NEW COMPLAINT OF RECTAL BLEEDING WITH ABDOMINAL PAIN AND JOINT PAINS. He shows me pictures of his stools with varying amt of BRB in the stools. He feels that taking a pepcid or a gas pill helps his joint pains. He will have pain across the abd in the am when he has to move his bowels. His BM's have been larger than usual and he feels like gonzales may have another fissure. He has concerns with upper abd pain as well as well lower abdominal pain as above, he is also concerned about a concavity in his upper abdomen that does not seem to respond to diet or exercise. At this point we are going to get the following studies a CT scan of the abdomen and pelvis to see if there is anything like diverticulitis, a slew inflammatory markers including a workup for potential inflammatory arthritis and for inflammatory bowel disease despite the fact that he has not having out right diarrhea, a fecal calprotectin, a RAST allergy panel because of the great deal of bloating, and an EGD/colonoscopy. At this time at least for the moment it seems like the bleeding is subsiding. He tried using the nifedipine Ajay cream but it really burned in irritated his buttocks. For now I encouraged him just to try the hemorrhoid cream as that is likely more soothing. I am really uncertain if there is any new intervention in terms of medication that I can start right now until I have more information. He denies any cardiac or respiratory problems. There are no prior problems with anesthesia or sedation. There are no infectious disease problems. There is no known family history of colon cancer or colon polyps. Return office visit in 3 weeks. Orders: Orders C Reactive Protein Today M25.50 - Pain in unspecified joint Complete Blood Count Auto Diff Today R10.9 - Unspecified abdominal pain Rast Allergen Today R14.0 - Abdominal distension (gaseous) CT abdomen pelvis w IV con Today R10.9 - Unspecified abdominal pain Erythrocyte Sedimentation Rate Today M25.50 - Pain in unspecified joint Rheumatoid Factor Today M25.50 - Pain in unspecified joint EGD/[place] Combo - GI Use Only Today K62.5 - Hemorrhage of anus and rectum, R10.9 - Unspecified abdominal pain Calprotectin, Fecal Today R10.9 - Unspecified abdominal pain Comprehensive Met. Panel Today R10.9 - Unspecified abdominal pain ELIE Reflex Titer and Pattern Today M25.50 - Pain in unspecified joint Medications: New bisacodyl (Dulcolax (bisacodyl)) 10 mg (2 x 5 mg) PO BEDTIME 2 days 4 tabs 0RF Coding Level of Care Code Est Pt Level 4 (15925) Diagnoses Arthralgia M25.50 Bloating symptom R14.0 Abdominal pain R10.9 Pre-op examination Z01.818 Rectal bleeding K62.5
[2023-04-25 08:47] VITALS: BP 133/72; PULSE 66; BMI 25.1
== END 2023-04-25 09:35 | disposition home or self-care (01) ==
PROVIDERS: PCP Internal Medicine; Visit Provider Nurse Practitioner
DX: M25.50 Pain in unspecified joint (principal); R14.0 Abdominal distension (gaseous); R10.9 Unspecified abdominal pain; Z01.818 Encounter for other preprocedural examination; K62.5 Hemorrhage of anus and rectum
CPT/HCPCS: 99214

== ENCOUNTER 2023-04-25 08:44 | Outpatient (REF) | payer MEDICARE, MEDICAID, SELFPAY ==
[2023-04-25 10:18] LABS: MANUAL DIFF FLAG NO
[2023-04-25 10:29] LABS: Basophils Absolute Auto 0.1 X10*3/uL (0.0-0.2); Basophils Percent Auto 1.5 % (0-2); Eosinophils Absolute Auto 0.1 X10*3/uL (0.0-0.4); Eosinophils Percent Auto 2.4 % (0-4); Hematocrit 39.4 % (42.0-52.0); Imm Gran Abs Auto 0.01 X10*3/uL (0.00-0.03); Imm Gran Pct Auto 0.2 % (0.0-0.4); Lymphocytes Absolute Auto 1.5 X10*3/uL (1.2-4.9); Mean Corpuscular Hemoglobin 31.9 pg (27.0-33.0); Mean Corpuscular Volume 96.8 fL (80.0-98.0); Mean Platelet Volume 11.5 fL (9.4-12.4); Monocytes Absolute Auto 0.4 X10*3/uL (0.1-1.2); Monocytes Percent Auto 9.2 % (2-11); Neutrophils Absolute Auto 2.1 x10*3/uL (2.0-8.3); Neutrophils Percent Auto 50.7 % (45-73); Platelet Count 154 X10*3/uL (160-400); Red Blood Count 4.07 X10*6/uL (4.60-5.80); Red Cell Distribution Width 11.9 % (11.0-16.0); White Blood Count 4.1 X10*3/uL (4.8-10.8)
[2023-04-25 11:15] LABS: Erythrocyte Sedimentation Rate 2 MM/HR (0-15)
[2023-04-25 11:24] LABS: Rheumatoid Factor < 13.0 IU/mL (<15.0)
[2023-04-25 11:25] LABS: Alanine Aminotransferase 17 U/L (0-40); Albumin Level 4.3 g/dL (3.5-5.0); Alkaline Phosphatase 48 U/L (39-117); Anion Gap 11 (12-20); Aspartate Amino Transferase 19 U/L (5-37); Bilirubin Total 0.4 mg/dL (0.0-1.0); Blood Urea Nitrogen 19 mg/dL (9-16); C Reactive Protein < 0.10 mg/dL (< or = 0.50); Calcium 9.3 mg/dL (8.4-10.2); Carbon Dioxide 30 mmol/L (22-29); Chloride 105 mmol/L (96-108); Estimated Glomerular Filt Rate > 60; Glucose Random 105 mg/dL (60-115); Potassium 4.5 mmol/L (3.3-5.1); Sodium 141 mmol/L (135-145); Total Protein 6.8 g/dL (6.5-8.0)
[2023-04-30 14:09] LABS: Anti Nuclear Antibody Screen NEGATIVE (NEGATIVE)
== END 2023-04-25 08:45 | disposition home or self-care (01) ==
LOC: HO.LAB 08:44
PROVIDERS: PCP Internal Medicine; Visit Provider Nurse Practitioner
DX: Z01.818 Encounter for other preprocedural examination (principal); M25.50 Pain in unspecified joint; R14.0 Abdominal distension (gaseous); R10.9 Unspecified abdominal pain; K62.5 Hemorrhage of anus and rectum
CPT/HCPCS: 36415; 80053; 85025; 85652; 86003; 86038; 86140; 86431; 99212

== ENCOUNTER 2023-04-26 15:59 | Outpatient (REF) | payer MEDICARE, MEDICAID, SELFPAY ==
[2023-05-02 17:48] LABS: Calprotectin, Fecal 21 mcg/g
== END 2023-04-26 16:00 | disposition home or self-care (01) ==
LOC: HO.LNP 15:59
PROVIDERS: Visit Provider Nurse Practitioner
DX: R10.9 Unspecified abdominal pain (principal)
CPT/HCPCS: 83993

== ENCOUNTER 2023-05-06 19:12 | Outpatient (REF) | payer MEDICARE, MEDICAID, SELFPAY ==
--- NOTE | ~2023-05-06 | MR_ITS ---
EXAMINATION: MR KNEE WITHOUT CONTRAST, RIGHT CLINICAL INFORMATION: Osteoarthritis. Right knee pain and swelling. Running injury. Limited range of motion. COMPARISON: Right knee radiographs dated 04/15/2023. TECHNIQUE: MRI of the knee without contrast was performed using routine sequences on a high-field scanner. FINDINGS: MENISCI: Medial Meniscus: Oblique inner margin/femoral articular surface tear of the posterior horn with extension to the posterior aspect of the meniscal body. Irregular inner margin and tibial articular surface tearing of the meniscal body with a tiny, inferiorly displaced meniscal flap in the medial meniscotibial recess measuring up to 0.7 cm in craniocaudal dimension. Adjacent soft tissue edema. Lateral Meniscus: Intact LIGAMENTS: Cruciate: Intact Collateral: Edema adjacent to the medial collateral ligament, likely related to the meniscal tear. A grade 1 sprain could be considered in the appropriate clinical setting. Intact fibular collateral ligament. EXTENSOR MECHANISM: Intact ARTICULAR CARTILAGE/BONE: Patellofemoral Compartment: Minimal medial patellar facet articular cartilage signal heterogeneity. Medial Compartment: Intact articular cartilage. Minimal marrow edema within the medial femoral condyle and medial tibial plateau, consistent with osseous contusions. No fracture line. Lateral Compartment: Intact articular cartilage. JOINT FLUID AND BURSAE: Small joint effusion and small Sumner's cyst. MR/MR knee RT wo con IMPRESSION: 1. Oblique inner margin/femoral articular surface tear of the medial meniscus posterior horn with extension to the posterior aspect of the meniscal body. Irregular inner margin and tibial articular surface tearing of the meniscal body with a tiny inferiorly displaced meniscal flap. Adjacent soft tissue edema. Minimal osseous contusions within the medial femoral condyle and medial tibial plateau. 2. Edema adjacent to the medial collateral ligament, likely related to a meniscal tear. Grade 1 sprain could be considered in the proper clinical setting. 3. Minimal patellofemoral arthrosis. Small joint effusion and small Sumner's cyst.
--- NOTE | ~2023-05-06 | MR_ITS ---
EXAMINATION: MR KNEE WITHOUT CONTRAST, LEFT CLINICAL INFORMATION: Left knee pain and swelling. Recent running injury. Limited range of motion. Remote trauma. COMPARISON: Standing knee radiographs dated 04/15/2023. TECHNIQUE: MRI of the knee without contrast was performed using routine sequences on a high-field scanner. FINDINGS: MENISCI: Medial Meniscus: Degenerative intrasubstance signal within the meniscal body and posterior horn without definite extension to the articular surface to suggest tearing. Lateral Meniscus: Intact LIGAMENTS: Cruciate: Intact Collateral: Intact EXTENSOR MECHANISM: Intact ARTICULAR CARTILAGE/BONE: Patellofemoral Compartment: Medial patellar facet articular cartilage thinning with focal full-thickness fissuring and minimal subchondral cystic change. Medial Compartment: Intact articular cartilage. Lateral Compartment: Intact articular cartilage. JOINT FLUID AND BURSAE: Trace joint effusion and small Sumner's cyst. MR/MR knee LT wo con IMPRESSION: 1. Degenerative intrasubstance signal within the medial meniscal body and posterior horn without definite extension to the articular surface to suggest tearing. 2. Mild patellofemoral arthrosis. 3. Trace joint effusion and small Sumner's cyst.
== END 2023-05-06 19:13 | disposition home or self-care (01) ==
LOC: HO.MRI 19:12
PROVIDERS: PCP Internal Medicine; Visit Provider Physician Assistant
DX: M17.11 Unilateral primary osteoarthritis, right knee (principal); M17.12 Unilateral primary osteoarthritis, left knee
CPT/HCPCS: 73721

== ENCOUNTER 2023-05-23 11:07 | Outpatient (AMB) | payer MEDICARE, MEDICAID, SELFPAY ==
[2023-05-23 11:40] VITALS: BMI 25.1
--- NOTE | 2023-05-23 11:40 | MHC.OFFVIS ---
Vital Signs 05/23/23 11:40 Height 5 ft 10 in Weight 175 lb BMI 25.1 Intake Visit Reasons: Tel-MRI bilat knee review Intake Note: Jamari a 42 year old male who presents today for an MRI review of bilateral knees. Allergies No Known Allergies Allergy (Verified 05/23/23 11:58) HPI HPI Tel-MRI bilat knee review: Details: 42 yo male presents to the office today F/u MRI bilat knee. He states the right knee continues to be the worse of the both. he has pain with twisting motions and feels catching. The pain limits his daily activities. [facility] Medical History Post traumatic stress disorder (PTSD) Anal pain Pancreatitis GERD (gastroesophageal reflux disease) History of broken finger Surgical History History of endoscopy History of colonoscopy No pertinent past surgical history Family History Mother No problems noted. Father No problems noted. 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 Cognitive needs: No Hearing needs: No Vision needs: No Review of Systems Const All systems reviewed & are unremarkable except as noted in HPI and below Physical Exam Vital Signs: BMI result Body Mass Index 25.1 Const General: cooperative, healthy appearing, comfortable, no acute distress, well developed and alert Orientation/consciousness: patient oriented x3 HEENT Head: Yes normal to inspection, Yes normocephalic and Yes atraumatic Eyes General: appearance normal, both eyes and all related structures Neck Neck: Yes normal visual inspection and Yes no lymphadenopathy Resp Effort & Inspection: normal respiratory effort and able to speak in complete sentences Cardio Rate: regular rate Peripheral pulses: Peripheral pulses 2+ throughout GI Inspection: Yes normal to inspection Palpation (GI): Soft to palpation Skin General skin exam: no rashes or lesions noted Neuro General: patient oriented x3 Extrem Other: Right knee: Skin intact, no erythema or joint effusion. Tenderness along the medial joint line. Full ROM with crepitus. Positive Dustin?s. No ligamentous laxity. NVI. Psych Appearance: grossly normal Mental Status: mental status grossly normal Results Reviewed Results Reviewed: MR knee RT wo con IMPRESSION: 1. Oblique inner margin/femoral articular surface tear of the medial meniscus posterior horn with extension to the posterior aspect of the meniscal body. Irregular inner margin and tibial articular surface tearing of the meniscal body with a tiny inferiorly displaced meniscal flap. Adjacent soft tissue edema. Minimal osseous contusions within the medial femoral condyle and medial tibial plateau. 2. Edema adjacent to the medial collateral ligament, likely related to a meniscal tear. Grade 1 sprain could be considered in the proper clinical setting. 3. Minimal patellofemoral arthrosis. Small joint effusion and small Sumner's cyst. Assessment & Plan Assessment & Plan (1) Tear of meniscus of right knee as current injury: Code(s): S83.206A - Unspecified tear of unspecified meniscus, current injury, right knee, initial encounter Category: Medical Plan: I discussed the extent of the injury to the patient and options available which include surgical intervention. I explained the procedure in detail along with the length of recovery and rehab course. I explained the risk, benefits and alternatives. Risk including, but not limited to infection, blood clots, bleeding, ongoing pain and stiffness. I answered all their questions and with their understanding they have consented to move forward with right knee arthroscopy with Dr Isabel. The patient will be booked accordingly.
== END 2023-05-23 12:01 | disposition home or self-care (01) ==
PROVIDERS: PCP Internal Medicine; Visit Provider Physician Assistant
DX: S83.242A Other tear of medial meniscus, current injury, left knee, initial encounter (principal)
CPT/HCPCS: 99214

== ENCOUNTER → 2023-05-23 11:07 | Outpatient (BNVA) | payer MEDICARE, MEDICAID, SELFPAY | PROVIDERS: PCP Internal Medicine; Visit Provider Physician Assistant | DX: S83.206A Unspecified tear of unspecified meniscus, current injury, right knee, initial encounter (principal) | CPT/HCPCS: 99212 ==

== ENCOUNTER 2023-06-12 05:47 | Day surgery (SDC) | payer MEDICARE, MEDICAID, SELFPAY ==
--- NOTE | 2023-06-10 14:25 | P.CONAN_ITS ---
Documented by User: Samantha Ken NP 06/10/23 14:27 HPI - Anesthesia Eval Consult details Narrative: 42yo M for Right Knee Arthroscopy PMFSH Active Problems Active Problems: All Active Problems Tear of meniscus of right knee as current injury (Acute) Pre-op examination (Acute) Rectal bleeding (Acute) Bloating symptom (Acute) Patellofemoral arthralgia of right knee (Acute) Lymphadenopathy, inguinal (Chronic) Laceration of left thumb (Acute) Rectal pain (Acute) Rectal fissure (Acute) Hemorrhoids (Acute) Varicose veins of right lower extremity (Acute) Chronic idiopathic constipation (Acute) PTSD (post-traumatic stress disorder) (Acute) Abdominal bloating (Acute) Abdominal pain (Acute) Elbow pain (Acute) Arthralgia (Acute) Physical exam (Acute) Numbness and tingling of right hand (Acute) Hand pain (Acute) Shoulder pain (Acute) Anal pain (Acute) Past Medical History Medical History Post traumatic stress disorder (PTSD) Anal pain Pancreatitis GERD (gastroesophageal reflux disease) History of broken finger Family History Family History Mother No problems noted. Father No problems noted. Other Marijuana use Surgical History Surgical History History of endoscopy History of colonoscopy No pertinent past surgical history Social History Social History Housing: Apartment Alcohol intake: current Alcohol intake frequency: holidays/special occasions only Patient Tobacco Use Status: Never used Tobacco e-Cigarette/Vaping Use: Never Used Second Hand Smoke Exposure: No Use of substances other than those prescribed or required for medical reasons: Yes Substance Use Frequency: Occasionally Are you DNR?: No Advance Directives: No Advance Directives Information Provided: Yes service: No Current occupational status: disabled 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 Cognitive needs: No Hearing needs: No Vision needs: No Meds Allergies Allergy/AdvReac Type Severity Reaction Status Date / Time No Known Allergies Allergy Verified 06/12/23 06:08 Home Medications ?Medication ?Instructions ?Recorded ?Confirmed ?Last Taken ?Type acetaminophen 500 mg tablet 1,000 mg PO Q6H PRN Pain 04/25/23 06/12/23 Unknown History (Tylenol Extra Strength) famotidine-Ca carb-mag hydrox 10 1 tab PO BEDTIME PRN Heartburn 04/25/23 06/12/23 Unknown History mg-800 mg-165 mg chewable tablet (Pepcid Complete) ibuprofen 600 mg tablet 600 mg PO Q8H PRN Pain 04/25/23 06/12/23 Unknown History Exam Pertinent Lab Results Pertinent Lab Results: Laboratory Tests 04/25/23 10:15 WBC 4.1 L Hgb 13.0 L Hct 39.4 L Plt Count 154 L Sodium 141 Potassium 4.5 Chloride 105 Carbon Dioxide 30 H BUN 19 H Creatinine 1.25 Assessment and Plan Assessment Anesthesia Assessment: Chart Reviewed Documented by User: Seda Owens MD 06/12/23 07:39 PMF Past Medical History Medical History Post traumatic stress disorder (PTSD) Anal pain Pancreatitis GERD (gastroesophageal reflux disease) History of broken finger Family History Family History Mother No problems noted. Father No problems noted. Other Marijuana use Family history of problems with anesthesia: No Surgical History Surgical History History of endoscopy History of colonoscopy No pertinent past surgical history History of Problems with Anesthesia: No Social History Social History Housing: Apartment Alcohol intake: current Alcohol intake frequency: holidays/special occasions only Patient Tobacco Use Status: Never used Tobacco e-Cigarette/Vaping Use: Never Used Second Hand Smoke Exposure: No Use of substances other than those prescribed or required for medical reasons: Yes Substance Use Frequency: Occasionally Are you DNR?: No Advance Directives: No Advance Directives Information Provided: Yes service: No Current occupational status: disabled 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 Cognitive needs: No Hearing needs: No Vision needs: No Meds Allergies Allergy/AdvReac Type Severity Reaction Status Date / Time No Known Allergies Allergy Verified 06/12/23 06:08 Home Medications ?Medication ?Instructions ?Recorded ?Confirmed ?Last Taken ?Type acetaminophen 500 mg tablet 1,000 mg PO Q6H PRN Pain 04/25/23 06/12/23 Unknown History (Tylenol Extra Strength) famotidine-Ca carb-mag hydrox 10 1 tab PO BEDTIME PRN Heartburn 04/25/23 06/12/23 Unknown History mg-800 mg-165 mg chewable tablet (Pepcid Complete) ibuprofen 600 mg tablet 600 mg PO Q8H PRN Pain 04/25/23 06/12/23 Unknown History Exam Airway Mallampati Class: II TM Dist: >3cm Neck ROM: Full Assessment and Plan Assessment Anesthesia Assessment: Anesthesia Plan Discussed Final Anesthetic Review Family History of Problems with Anesthesia: No History of Problems with Anesthesia: No NPO: Yes ASA Class: II Final Preanesthetic Review: No Changes in Pt Med Stat, Meds/Allgs Chart Reviewed, Consent Obtained/Reviewed and Anes Risks/Benef Reviewed Patient Risk: Low Procedure Risk: Low Anesthetic Plan Anesthetic Plan: GA Disposition: Standard PACU
[2023-06-12] VITALS (8 sets, daily range): BP systolic 112–128; BP diastolic 51–76; PULSE 48–61; RESP 15–18; TEMP 36.2–36.6; O2SAT 98–100; BMI 25.0
[2023-06-12] MEDS: Lactated Ringers 1,000 ML 100 ML IVCONT (06:34)
--- NOTE | 2023-06-12 07:27 | MHC.SHP ---
Pre-Procedural Eval Section A - 24 Hr Update-Section A only Date of Service: 06/12/23 The patient is an INPATIENT: No Changes since office visit: No Cold of Flu in the past 2 weeks, No New Medical Problems, No Changes in Medication and No Patient answered all questions The patient has been examined within 24 hours of the surgical procedure. The History & Physical has been completed within 30 days and I have reviewed it.: Yes Section B - Complete if H&P > 30 days Chief Complaint: Other tear of medial meniscus, current injury, r Allergies: Allergies Allergy/AdvReac Type Severity Reaction Status Date / Time No Known Allergies Allergy Verified 06/12/23 06:08 Plan I have reviewed the history and physical and performed a pertinent physical examination on my patient. No changes have occurred unless specified. Time Spent With Patient Time: Total time managing care of this patient today ____ minutes.
--- NOTE | 2023-06-12 08:08 | P.OP_ITS ---
Operative Note Operative Note Date of Service: 06/12/23 Narrative: Date of Service: 06/12/23 Pre-op diagnosis: Right knee MMT Post-op diagnosis: same Procedure: Right knee partial medial meniscectomy Implants: none Surgeon: John Isabel MD Anesthesia: GETA and local Was an Shear Scrapman used for this Procedure?: No Estimated blood loss (mL): 0 Tourniquet time (min): 20 IV fluids (mL): 500 Pathology: none sent Condition: stable Disposition: PACU Procedure in detail: Patient was brought to the operating room placed supine on the arthroscopic table and prepped and draped in standard sterile fashion. A time-out was called to identify proper site proper procedure proper surgeon and IV antibiotics per weight were administered. I began by exsanguinating the limb and insufflating tourniquet to 300 mm Hg. Then made a standard anterolateral stab incision. The knee was insufflated with water and 30 degree arthroscope was placed. There was grade 1 fibrillations of the patella but overall the suprapatellar pouch and the gutters were clean. I descended into the medial compartment where I made my medial portal under direct visualization. There was obvious of complex tear of the posterior horn of the medial meniscus. The root was intact and there was grade 1 changes in the tibial plateau but minimal. I used a combination of biter shaver and cautery to remove unstable portions of the meniscus. Approximately 30% meniscal volume was removed. Once I was satsfied with this the ACL was examined and found to be intact and the lateral compartment also was without the need for intervention. I then removed all instrumentation and closed the portals with skin glue. 25 mL of 2% Marcaine with epinephrine was injected into the joint and the surrounding soft tissues. Patient was then placed in sterile dressing extubated brought recovery room stable condition. There were no known complications.
== END 2023-06-12 10:05 | disposition home or self-care (01) ==
PROVIDERS: PCP Internal Medicine; Visit Provider Orthopaedic Surgery
PROC: (CPT 29870; principal; 2023-06-12 07:30)
DX: S83.231A Complex tear of medial meniscus, current injury, right knee, initial encounter (principal); X58.XXXA Exposure to other specified factors, initial encounter; Y93.9 Activity, unspecified; Y92.9 Unspecified place or not applicable; Y99.8 Other external cause status; F43.10 Post-traumatic stress disorder, unspecified
CPT/HCPCS: 29881; J0131; J0171; J0690; J1100; J1885; J2250; J2405; J2704; J2795; J3010

== ENCOUNTER → 2023-06-12 05:47 | Outpatient (BNV) | payer MEDICARE, MEDICAID, SELFPAY | PROVIDERS: PCP Internal Medicine; Visit Provider Orthopaedic Surgery | DX: S83.231A Complex tear of medial meniscus, current injury, right knee, initial encounter (principal) | CPT/HCPCS: 29881 ==

== ENCOUNTER 2023-06-20 13:52 | Outpatient (AMB) | payer MEDICARE, MEDICAID, SELFPAY ==
--- NOTE | 2023-06-20 14:16 | A.OFFVIS_ITS ---
Intake Visit Reasons: PO RT knee 06/12/23 NE Intake Note: Jamari is a 42 year old male who presents today for a post op appointment s/p RT knee 06/12/23 NE. Patient reports he is still having some swelling and having a lot of pain. Allergies No Known Allergies Allergy (Verified 06/20/23 14:17) HPI HPI PO RT knee 06/12/23 NE: Details: 42-year-old male who presents in the office today 8 days status post right knee partial medial meniscectomy, which was performed on 06/12/[address] Isabel. While in the office today the patient reports some edema and a large amount of pain. [facility] Medical History Post traumatic stress disorder (PTSD) Anal pain Pancreatitis GERD (gastroesophageal reflux disease) History of broken finger Surgical History History of endoscopy History of colonoscopy No pertinent past surgical history Family History Mother No problems noted. Father No problems noted. 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 Covered in steri-stripes. No surrounding erythema or drainage. No signs of infection. Moderate effusion. ROM is 0-50 degrees, NVI. Assessment & Plan Assessment & Plan (1) Tear of meniscus of right knee as current injury: Comment: Right knee partial medial meniscectomy 06/12/2023 Dr. Isabel. Code(s): S83.206A - Unspecified tear of unspecified meniscus, current injury, right knee, initial encounter Category: Medical Qualifiers: Encounter type: subsequent encounter Meniscus of knee: medial Meniscus tear of knee type: unspecified type Qualified Code(s): S83.241D - Other tear of medial meniscus, current injury, right knee, subsequent encounter Plan Mr. Dunlap is a 42-year-old male who presents in the office today 8 days status post right knee partial medial meniscectomy, which was performed on 06/12/[address] Isabel. While in the office today the patient reports some edema and a large amount of pain. Steri-stripes will remain intact until they fall off on their own. Patient does have a moderate amount of edema on today?s exam. I do feel he would benefit from attending physical therapy to work on ROM and modalities for the edema. A referral was placed today. Follow up will be in 4 weeks for a ROM check, or so radha if needed. Orders: Orders PT Evaluation and Treatment Today S83.241D - Other tear of medial meniscus, current injury, right knee, subsequent encounter Patient Instructions: Scribed by Kirstin Medina medical biller coder, for Isabela Wong PA-C on 06/20/2023 at 1:55 pm, EST. Coding Level of Care Code Global (83350) Diagnoses Tear of medial meniscus of right knee, current, unspecified tear type, subsequent encounter S83.241D Encounter type: subsequent encounter Meniscus of knee: medial Meniscus tear of knee type: unspecified type
== END 2023-06-20 14:30 | disposition home or self-care (01) ==
PROVIDERS: PCP Internal Medicine; Visit Provider Physician Assistant
DX: S83.241D Other tear of medial meniscus, current injury, right knee, subsequent encounter (principal)
CPT/HCPCS: 99024

== ENCOUNTER → 2023-06-20 13:52 | Outpatient (BNVA) | payer MEDICARE, MEDICAID, SELFPAY | PROVIDERS: PCP Internal Medicine; Visit Provider Physician Assistant | DX: S83.241D Other tear of medial meniscus, current injury, right knee, subsequent encounter (principal) | CPT/HCPCS: 99212 ==

== ENCOUNTER 2023-07-18 14:02 | Outpatient (AMB) | payer MEDICARE, MEDICAID, SELFPAY ==
--- NOTE | 2023-07-18 14:26 | MHC.OFFVIS ---
Intake Visit Reasons: 4w f/u RT knee Intake Note: Jamari a 43 year old male who presents today for a post operative right knee on 06/12/23 NE. Patient reports he has had improvement, stating just a little stiff. States he has been going up and down stairs. He has not started PT. Allergies No Known Allergies Allergy (Verified 07/18/23 14:30) HPI HPI 4w f/u RT knee : Details: 43-year-old male who returns to the office today for post-op right knee , 06/12/[address] Isabel. He states he has improvement in his pain however he continues to have mild stiffness with going up and downstairs. He has not yet started with physical therapy. He has doing well overall and has no other concerns today. [facility] Medical History Post traumatic stress disorder (PTSD) Anal pain Pancreatitis GERD (gastroesophageal reflux disease) History of broken finger Surgical History History of endoscopy History of colonoscopy No pertinent past surgical history Family History Mother No problems noted. Father No problems noted. 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 ROM is 0-115 degrees. Calf supple, nontender. NVI. Results Reviewed Results Reviewed: Brief Operative Note Date of Service: 06/12/23 Pre-op diagnosis: Right knee MMT Post-op diagnosis: same Procedure: Right knee partial medial meniscectomy Implants: none Surgeon: John Isabel MD Assessment & Plan Assessment & Plan (1) Tear of meniscus of right knee as current injury: Comment: Right knee partial medial meniscectomy 06/12/2023 Dr. Isabel. Code(s): S83.206A - Unspecified tear of unspecified meniscus, current injury, right knee, initial encounter Category: Medical Qualifiers: Encounter type: subsequent encounter Meniscus of knee: medial Meniscus tear of knee type: unspecified type Qualified Code(s): S83.241D - Other tear of medial meniscus, current injury, right knee, subsequent encounter Plan He will contact physical therapy to make an appointment to work on quad strengthening. He will increase activities as tolerated and see me back as needed. Patient Instructions: Scribed for Anup Matos PA-C, by Alexandr Kincaid veterinary medical officer, on 07/18/2023 at 2:15 PM EST.? I, Anup Matos PA-C, have personally reviewed and agree with the information entered by the scribe. Coding Level of Care Code Global (97960) Diagnoses Tear of medial meniscus of right knee, current, unspecified tear type, subsequent encounter S83.241D Encounter type: subsequent encounter Meniscus of knee: medial Meniscus tear of knee type: unspecified type
== END 2023-07-18 15:35 | disposition home or self-care (01) ==
PROVIDERS: PCP Internal Medicine; Visit Provider Physician Assistant
DX: S83.241D Other tear of medial meniscus, current injury, right knee, subsequent encounter (principal)
CPT/HCPCS: 99024

== ENCOUNTER → 2023-07-18 14:02 | Outpatient (BNVA) | payer MEDICARE, MEDICAID, SELFPAY | PROVIDERS: PCP Internal Medicine; Visit Provider Physician Assistant | DX: S83.241D Other tear of medial meniscus, current injury, right knee, subsequent encounter (principal) | CPT/HCPCS: 99212 ==

== ENCOUNTER 2023-08-13 08:28 | Day surgery (SDC) | payer MEDICARE, MEDICAID, SELFPAY ==
[2023-06-10 14:02] VITALS: BMI 25.1
[2023-08-13 09:07] VITALS: BP 100/51; PULSE 54; RESP 18; TEMP 36.3; O2SAT 99; BMI 25.4
[2023-08-13] MEDS: Lactated Ringers 1,000 ML 50 ML IVCONT (09:31)
--- NOTE | 2023-08-13 09:34 | MHC.SHP ---
Pre-Procedural Eval Section A - 24 Hr Update-Section A only Date of Service: 08/13/23 Section B - Complete if H&P > 30 days Chief Complaint: Abdominal distension (gaseous) Details of Present Illness: pain and rectal bleeding Relevant Family History (Specify if Yes): No Relevant Social History: None Present Medications: see Short Stay Collaborative assessment Medical History: Significant History (Post traumatic stress disorder (PTSD) Anal pain Pancreatitis GERD (gastroesophageal reflux disease) History of broken finger) History of Previous Operations: Relevant previous surgery/procedure and date(s) (History of endoscopy History of colonoscopy) Allergies: Allergies Allergy/AdvReac Type Severity Reaction Status Date / Time No Known Allergies Allergy Verified 07/18/23 14:30 Review of Systems Sugical H&P ROS: Negative: Constitution, Cardiovascular, Respiratory, Neurological, Psychiatric, Hem-Onc, Allergic/Immunologic, Gastrointestinal, Genitourinary, Musculoskeletal, Integumentary, Endocrine and Eyes/Ears/Nose/Throat Exam Surgical H&P Exam: Normal: HEENT, Normal: Heart, Normal: Lungs, Normal: Extremities, Normal: Abdomen, Normal: Skin and Normal: Neurological Plan Diagnosis/Plan: Unchanged I have reviewed the history and physical and performed a pertinent physical examination on my patient. No changes have occurred unless specified. Time Spent With Patient Time: Total time managing care of this patient today ____ minutes.
--- NOTE | 2023-08-13 10:12 | P.OPN-COLO_ITS ---
Colonoscopy Operative Note Operative Note Date of Service: 08/13/23 Narrative: Operative Information Procedure Description: EGD, Colonoscopy Indication: abdominal pain Anesthesia: MAC FLEXIBLE TRANSORAL UPPER GASTROINTESTINAL ENDOSCOPY AND COLONOSCOPY PROCEDURE NOTE UPPER ENDOSCOPY Consent: Indications for the procedure and potential complications of bleeding, perforation, reaction to medications and missed diagnosis were discussed with the patient and informed consent was obtained. Instrument: Olympus GIF H 190 J mid size upper endoscope Monitoring: Vital signs and clinical assessment, continuous EKG monitoring, Pulse oximetry, Carbon Dioxide monitoring and blood pressure monitoring were done throughout the procedure. Procedure: The patient was placed in the left lateral decubitis position and pre-procedure medications were administered and a bite block was placed. The endoscope was inserted into the mouth and advanced under direct vision to the third part of duodenum. A careful inspection was made as the upper endoscope was withdrawn including a retroflexed examination of the proximal stomach; Findings and interventions are described below. Findings: Larynx:normal Esophagus: GE junction at 40 cm, diaphragm hiatus at 40 cm, possible short segment barretts, bx taken from GEJ, and distal, proximal esophagus Stomach: Mild erythema. Biopsies were obtained. Grade 2 flap valve on retroflexed examination of the cardia. Duodenum: Normal bulb and descending duodenum, bx taken Intervention: Biopsies as noted above, COLONOSCOPY Instrument: Olympus variable stiffness pediatric scope 190L Colonoscopy Monitoring: Vital signs and clinical assessment, continuous EKG monitoring, Pulse oximetry, Carbon Dioxide monitoring and blood pressure monitoring were done throughout the procedure. Colon withdrawal time was 10 minutes. Procedure: The patient was placed in the left lateral decubitis position and pre-procedure medications were administered. After a digital rectal examination of the ano-rectum, the video colonoscope was inserted into the rectum and advanced through the colon to the cecum/TI. The colonoscope was slowly withdrawn in a retrograde panoramic fashion and the colon mucosa was carefully examined including a retroflexed view of the rectum. Findings and interventions are described below. Procedure Difficulty:moderate Findings: Terminal Ileum-normal, bx taken Random bx taken from right, left and rectum Cecum:normal Ascending Colon: normal Transverse Colon -normal Descending Colon:normal Sigmoid Colon: normal Rectum: Retroflexion with small internal hemorrhoids, grade I Anorectum - normal Colon preparation: [place] Bowel Preparation Scale Right colon; 2 Transverse colon: 2 Left colon; 2 (0 = Unprepared colon segment with mucosa not seen due to solid stool that can not be cleared. 1 = Portion of mucosa of the colon segment seen, but other areas of the colon segment not well seen due to staining, residual stool and/or opaque liquid. 2 = Minor amount of residual staining, small fragments of stool and/or opaque liquid, but mucosa of colon segment seen well. 3 = Entire mucosa of colon segment seen well with no residual staining, small fragments of stool or opaque liquid) Impression and Post Procedure Diagnosis: Endoscopy Findings: mild gastritis possible short segment barretts Colonoscopy Findings: internal hemorrhoids Plan: Await Pathology results Repeat Colonoscopy in 10 years or earlier if clinically indicated High fiber diet leaflet avoid straining at stool, epsom salts and sitz bath, anusol supps or cream If bx neg and ongoing sx can consider capsule study or CT enterogram Above findings were reviewed with the patient and relevant handouts were provided if indicated.
--- NOTE | 2023-08-13 10:35 | P.CONAN_ITS ---
HPI - Anesthesia Eval Consult details Narrative: 43 M for egd/colo Reports jaw instability PMFSH Active Problems Active Problems: All Active Problems Tear of meniscus of right knee as current injury (Acute) Pre-op examination (Acute) Rectal bleeding (Acute) Bloating symptom (Acute) Patellofemoral arthralgia of right knee (Acute) Lymphadenopathy, inguinal (Chronic) Laceration of left thumb (Acute) Rectal pain (Acute) Rectal fissure (Acute) Hemorrhoids (Acute) Varicose veins of right lower extremity (Acute) Chronic idiopathic constipation (Acute) PTSD (post-traumatic stress disorder) (Acute) Abdominal bloating (Acute) Abdominal pain (Acute) Elbow pain (Acute) Arthralgia (Acute) Physical exam (Acute) Numbness and tingling of right hand (Acute) Hand pain (Acute) Shoulder pain (Acute) Anal pain (Acute) Past Medical History Medical History Jaw closure abnormality Post traumatic stress disorder (PTSD) Anal pain Pancreatitis GERD (gastroesophageal reflux disease) History of broken finger Family History Family History Mother No problems noted. Father No problems noted. Other Marijuana use Family history of problems with anesthesia: No Surgical History Surgical History H/O knee surgery History of endoscopy History of colonoscopy No pertinent past surgical history History of Problems with Anesthesia: No Social History Social History Housing: Apartment Alcohol intake: current Alcohol intake frequency: does not drink Patient Tobacco Use Status: Never used Tobacco e-Cigarette/Vaping Use: Never Used Second Hand Smoke Exposure: No Are you DNR?: No Advance Directives: No Advance Directives Information Provided: Yes Nutrition Risks: No Nutritional Risk service: No Current occupational status: disabled 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 Cognitive needs: No Hearing needs: No Vision needs: No Meds Allergies Allergy/AdvReac Type Severity Reaction Status Date / Time No Known Allergies Allergy Verified 07/18/23 14:30 Active Medications: Current Medications Lactated Ringer's (Lr) 1,000 mls @ 50 mls/hr IVCONT .Q20H LD Last Admin: 08/13/23 09:31 Dose: 50 mls/hr Home Medications ?Medication ?Instructions ?Recorded ?Confirmed ?Last Taken ?Type No Known Home Meds 08/13/23 08/13/23 Unknown History Exam Height,Weight and Vital Signs: Height 5 ft 10 in Weight 177 lb 0.499 oz Last Vital Signs Temp 97.4 F 08/13/23 09:07 Pulse 54 08/13/23 09:07 Resp 18 08/13/23 09:07 BP 100/51 L 08/13/23 09:07 Pulse Ox 99 08/13/23 09:07 O2 Del Method Room Air 08/13/23 09:07 Airway Mallampati Class: II TM Dist: >3cm Neck ROM: Full Loose/Missing/Broken Teeth: Yes Assessment and Plan Assessment Anesthesia Assessment: Anesthesia Plan Discussed and Chart Reviewed Final Anesthetic Review Family History of Problems with Anesthesia: No History of Problems with Anesthesia: No NPO: Yes ASA Class: II Final Preanesthetic Review: No Changes in Pt Med Stat, Meds/Allgs Chart Reviewed, Consent Obtained/Reviewed and Anes Risks/Benef Reviewed Patient Risk: Low Procedure Risk: Low Anesthetic Plan Anesthetic Plan: MAC: Disposition: Standard PACU
[2023-08-13 10:52] VITALS: BP 105/60; PULSE 64; RESP 20; TEMP 36.1; O2SAT 100
[2023-08-13 11:07] VITALS: BP 105/60; PULSE 64; RESP 20; TEMP 36.1; O2SAT 100
--- NOTE | 2023-08-13 16:28 | P.CONAN_ITS ---
HPI - Anesthesia Eval Consult details Narrative: 43-year-old male here for endoscopy colonoscopy [facility] Active Problems Active Problems: All Active Problems Tear of meniscus of right knee as current injury (Acute) Pre-op examination (Acute) Rectal bleeding (Acute) Bloating symptom (Acute) Patellofemoral arthralgia of right knee (Acute) Lymphadenopathy, inguinal (Chronic) Laceration of left thumb (Acute) Rectal pain (Acute) Rectal fissure (Acute) Hemorrhoids (Acute) Varicose veins of right lower extremity (Acute) Chronic idiopathic constipation (Acute) PTSD (post-traumatic stress disorder) (Acute) Abdominal bloating (Acute) Abdominal pain (Acute) Elbow pain (Acute) Arthralgia (Acute) Physical exam (Acute) Numbness and tingling of right hand (Acute) Hand pain (Acute) Shoulder pain (Acute) Anal pain (Acute) Past Medical History Medical History Jaw closure abnormality Post traumatic stress disorder (PTSD) Anal pain Pancreatitis GERD (gastroesophageal reflux disease) History of broken finger Family History Family History Mother No problems noted. Father No problems noted. 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 Cognitive needs: No Hearing needs: No Vision needs: No Meds Allergies Allergy/AdvReac Type Severity Reaction Status Date / Time No Known Allergies Allergy Verified 07/18/23 14:30 Home Medications ?Medication ?Instructions ?Recorded ?Confirmed ?Last Taken ?Type No Known Home Meds 08/13/23 08/13/23 Unknown History Exam Height,Weight and Vital Signs: Height 5 ft 10 in Weight 177 lb 0.499 oz Last Vital Signs Temp 97 F 08/13/23 11:07 Pulse 64 08/13/23 11:07 Resp 20 08/13/23 11:07 BP 105/60 08/13/23 11:07 Pulse Ox 100 08/13/23 11:07 O2 Del Method Room Air 08/13/23 11:07 Airway Mallampati Class: II TM Dist: >3cm Neck ROM: Full Loose/Missing/Broken Teeth: Yes Assessment and Plan Assessment Anesthesia Assessment: Anesthesia Plan Discussed and Chart Reviewed Final Anesthetic Review Family History of Problems with Anesthesia: No History of Problems with Anesthesia: No NPO: Yes ASA Class: II Final Preanesthetic Review: No Changes in Pt Med Stat, Meds/Allgs Chart Reviewed, Consent Obtained/Reviewed and Anes Risks/Benef Reviewed Patient Risk: Low Procedure Risk: Low Anesthetic Plan Anesthetic Plan: MAC: Disposition: Standard PACU
== END 2023-08-13 11:40 | disposition home or self-care (01) ==
PROVIDERS: PCP Internal Medicine; Visit Provider Internal Medicine Gastroenterology
PROC: (CPT 43239; principal; 2023-08-13 10:40)
DX: K29.60 Other gastritis without bleeding (principal); D12.8 Benign neoplasm of rectum; K64.8 Other hemorrhoids; K62.5 Hemorrhage of anus and rectum; R14.0 Abdominal distension (gaseous); K59.04 Chronic idiopathic constipation; K21.9 Gastro-esophageal reflux disease without esophagitis
CPT/HCPCS: 43239; 45380; 88305; 88313; 88342; J2704

== ENCOUNTER → 2023-08-13 08:28 | Outpatient (BNV) | payer MEDICARE, MEDICAID, SELFPAY | PROVIDERS: PCP Internal Medicine; Visit Provider Internal Medicine Gastroenterology | DX: R10.9 Unspecified abdominal pain (principal); K29.70 Gastritis, unspecified, without bleeding; K64.0 First degree hemorrhoids | CPT/HCPCS: 43239; 45380 ==

== ENCOUNTER 2024-01-27 07:52 | Outpatient (REF) | payer MEDICARE, MEDICAID, SELFPAY ==
--- OUTSIDE RECORDS SUMMARY | 2024-01-27 07:54 | XMS_ITS ---
Author Organization [facility] Address [address] [place] [address] [place] [address] Care Team Providers Care Staffing And Scheduling Coordinator Name Role Phone Sunshine MARY, Jaquan Primary Care Provider Benigno Morocho [phone] REASON FOR VISIT 07/02/23 appt Encounters Encounter [facility] [address] [facility] Benigno Aguirre Plan Of Treatment No Information Progress Notes * Jeny LORENZANAOB:1980 (42 yo M)Acc No.[id number]:03/27/2023 Patient:?Jamari Lorenzana :1980???Age:42 Y???Sex:Male Address:[address] [place] [address] * true * Date:? Generated for Printi ng/Fabrendag/eTransmitting on:?01/27/2024 07:53 AM EST
--- OUTSIDE RECORDS SUMMARY | 2024-01-27 07:54 | XMS_ITS | Patient Health Record ---
Author Organization [facility] Address [address] [place] [address] Care Team Providers Care Machine Cutter Name Role Phone Jaquan Gonsalez MD Primary Care Provider Benigno Morocho [facility] [phone] Reason For Referral No Information Encounters Encounter Location Date Provider Diagnosis [facility] [address] [place] [address] 03/25/2023 Benigno Aguirre [facility] [address] 03/27/2023 Benigno Aguirre Plan Of Treatment No Information Insurance Providers Payer Name Payer Address Payer Phone Subscriber Number Group Number Insured Name Patient Relationship to Insured Coverage Start Date Coverage End Date Medicare [employer] [facility] [address] [place] [address] [phone] Jamari Dunlap Self - patient is the insured
--- OUTSIDE RECORDS SUMMARY | 2024-01-27 07:54 | XMS_ITS ---
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 Generated for Printi ng/Fabrendag/eTransmitting on:?01/27/2024 07:54 AM EST
--- OUTSIDE RECORDS SUMMARY | 2024-01-27 07:54 | XMS_ITS ---
Author Organization [facility] Address [address] [place] [id number] Care Team Providers Care Dermatology Procedural Physician Name Role Phone Sunshine MARY, Jaquan Primary Care Provider Benigno Morocho [phone] Encounters Encounter [facility] Date [facility] [address] 07/02/[facility]23 Benigno Aguirre Plan Of Treatment No Information Progress Notes * Jeny LORENZANAOB:1980 (43 yo M)Acc No.[id number]:07/02/2023 Progress Notes Patient:?Jamari LORENZANA Provider:?Benigno Aguirre DPM :1980???Age:43 Y???Sex:Male Torsten e:07/02/2023 Address:[address], [id number] Pcp:Jaquan Gonsalez MD Subjective: * Chief Complaints: * ??? * Medical History:? Objective: * Vitals:? Assessment: Plan: * Treatment: * Images: * The named appointment provid er may or may not be the originator of this progress note, and it is not deemed complete until electronically signed by the appointment provider. Sign off status: Pending * Provider:Alia Aguirre DPM Date:? 024 Generated for Sushma mckinley/Wendie/eTransmitting on:?01/27/2024 07:53 AM EST
== END 2024-01-27 07:53 | disposition home or self-care (01) ==
LOC: HO.HOSX 07:52
PROVIDERS: Visit Provider Orthopaedic Surgery
DX: Z13.89 Encounter for screening for other disorder (principal)

== ENCOUNTER 2024-09-18 09:35 | Outpatient (REF) | payer MEDICARE, MEDICAID, SELFPAY ==
--- NOTE | ~2024-09-18 | XR_ITS ---
EXAMINATION: XR KNEE, LEFT CLINICAL INFORMATION: M25.562 - Pain in left knee COMPARISON: 04/15/2023. TECHNIQUE: AP view bilateral knees standing, lateral and patellofemoral views left knee. FINDINGS: Right Knee: Normal imaging appearance. Preserved joint spaces. Normal soft tissues. Left Knee: No fracture, dislocation, or suspicious bone lesion. Joint spaces are preserved. Normal knee and patellar alignment. Normal soft tissues. XR/XR knee LT 3V IMPRESSION: 1. Normal left knee. Electronically signed by: Phil Mckeon MD 09/18/2024 10:33 AM EDT
--- NOTE | ~2024-09-18 | XR_ITS ---
EXAMINATION: XR HIP, LEFT CLINICAL INFORMATION: M25.552 - Pain in left hip COMPARISON: Right hip 10/28/2019. TECHNIQUE: AP pelvis, and Two views of the left hip. FINDINGS: Pelvis is intact. No bone lesion. SI joints and sacrum appear normal. No fracture. Alignment is anatomic. Hip joint space is maintained. Soft tissues are unremarkable. XR/XR hip LT min 2V IMPRESSION: Normal pelvis and left hip. Electronically signed by: Phil Mckeon MD 09/18/2024 10:34 AM EDT
--- OUTSIDE RECORDS SUMMARY | 2024-09-18 09:39 | XMS_ITS | Patient Health Record ---
Author Organization [facility] Address [address] [facility] [place] [address] Care Team Providers Care It Network Architect Name Role Phone Sunshine MARY, Jaquan Primary Care Provider Unavaila Benigno Andres Unavailable [phone] Reason For Referral No Information Plan Of Treatment No Information Insurance Providers Payer Name Payer Address Payer Phone Subscriber Number Group Number Insured Name Patient Relationship to Insured Coverage Start Date Coverage End Date Medicare National Govt Sv[employer] [address] [place] [address] Jamari Dunlap Self - patient is the insured
--- OUTSIDE RECORDS SUMMARY | 2024-09-18 09:39 | XMS_ITS | Clinical Summary ---
Author Organization [facility] Address [id number] [place] [phone] Care Team Providers Care Leather Case Finisher Name Role Phone Unavailable Primary Care Provider Unavailabl e Social History Tobacco Use Types Packs/Day Years Used Date Smoking Tobacco: Never Assessed Sex and Gender Information Value Date Recorded Sex Assigned at Not on file Legal Sex Male 8:15 PM EST Gender Identity Not on file Sexual Orientation Not on file Last Filed Vital Signs Vital Sign Reading Time Taken Comments Blood Pressure - - Pulse - - Temperature - - Respiratory Rate - - Oxygen Saturation - - Inhaled Oxygen Concentration - - Weight 76.1 kg (167 lb 12.3 oz) 05/21/2023 9:45 AM EDT Height 177.8 cm (5' 10 ) 05/21/2023 9:45 AM EDT Body Mass Index 24.07 05/21/2023 9:45 AM EDT Plan of Treatment Health Maintenance Due Date Last Done Comments Hepatitis B Vaccines (1 of 3 - 19+ 3-dose series) 06/25/1999 DTaP,Tdap,and Td Vaccines (2 - Td or Tdap) 12/05/2021 12/06/2011 Cholesterol Screening (Lipid Panel) 03/07/2023 HIV Screening 03/07/2023 Hepatitis C Screening 03/07/2023 Social Influencers of Health Screening 03/07/2023 COVID-19 Vaccine (1 - 2023-2 5 season) 2023 Depression Screening 02/12/2024 Influenza Vaccine (#1) 2024 12/06/2011 HIB Vaccines Aged Out No longer eligi ble based on patient's age to complete this topic HPV Vaccines Aged Out No longer eligi ble based on patient's age to complete this topic Hepatitis A Vaccines Aged Out No long er eligible based on patient's age to complete this topic IPV Vaccines Aged Out No longer eligi ble based on patient's age to complete this topic MMR Vaccines Aged Out No longer eligi ble based on patient's age to complete this topic Meningococcal ACWY Vaccine Aged Out N o longer eligible based on patient's age to complete this topic Meningococcal B Vaccine Aged Out No l onger eligible based on patient's age to complete this topic Pneumococcal Vaccine: Pediat rics (0 to 5 Years) and At-Risk Patients (6 to 49 Years) Aged Out No longer eligi ble based on patient's age to complete this topic RSV Immunization Patients Un liliana 20 months Aged Out No longer eligible b ased on patient's age to complete this topic Varicella Vaccines Aged Out No longer eligible based on patient's age to complete this topic
== END 2024-09-18 09:36 | disposition home or self-care (01) ==
LOC: HO.HOSX 09:35
PROVIDERS: Visit Provider Physician Assistant
DX: M22.2X2 Patellofemoral disorders, left knee (principal); M76.892 Other specified enthesopathies of left lower limb, excluding foot
CPT/HCPCS: 73502; 73562; 99212

== ENCOUNTER 2024-09-18 10:17 | Outpatient (AMB) | payer MEDICARE, MEDICAID, SELFPAY ==
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
[2024-09-18 10:38] VITALS: BMI 25.1
== END 2024-09-18 11:15 | disposition home or self-care (01) ==
LOC: HO.HOS 10:17
PROVIDERS: PCP Internal Medicine; Visit Provider Physician Assistant
DX: M22.2X2 Patellofemoral disorders, left knee (principal); M76.892 Other specified enthesopathies of left lower limb, excluding foot
CPT/HCPCS: 99213; G2211

== ENCOUNTER → 2024-09-18 10:19 | Outpatient (BNV) | payer MEDICARE, MEDICAID, SELFPAY | PROVIDERS: Visit Provider Radiology Diagnostic Radiology | DX: M25.552 Pain in left hip (principal); M25.562 Pain in left knee | CPT/HCPCS: 73502; 73562 ==

== ENCOUNTER 2024-11-05 11:54 | Outpatient (AMB) | payer MEDICARE, MEDICAID, SELFPAY ==
--- OUTSIDE RECORDS SUMMARY | 2023-07-02 06:30 | XMS_ITS ---
Author Organization [facility] Address [address] [place] [address] Care Team Providers Care Bridge Ironworker Name Role Phone Sunshine MARY, Jaquan Primary Care Provider Benigno Morocho [phone] Encounters Encounter Location Date [facility] [address] [place] [address] 07/02/2023 Benigno Aguirre Plan Of Treatment No Information Progress Notes * Jeny LORENZANAOB:1980 (44 yo M)Acc No.[id number]:07/02/2023 Progress Notes Patient: Jamari PRESCOTT Provider: Caroline Aguirre DPM :1980 A ge:43 Y S ex:Male Date:07/02/2023 Address:[address], [place]-[address] Pcp:Jaquan Gonsalez MD Subjective: * Chief Complaints: * * Medical History: Objective: * Vitals: Assessment: Plan: * Treatment: * Images: * The named appointment provid er may or may not be the originator of this progress note, and it is not deemed complete until electronically signed by the appointment provider. Sign off status: Pending * Provider: Caroline Aguirre DPM Date: 07/02/2023 Generated for John Pauli ng/Fabrendag/eTransmitting on: 11/05/2024 04:50 PM EDT
--- NOTE | 2024-11-05 11:56 | MHC.OFFVIS ---
Vital Signs 11/05/24 11:58 Height 5 ft Weight 171 lb 15.369 oz BMI 33.6 BP 106/57 L Blood Pressure Location Lt brachial Position Sitting Pulse 64 Intake Visit Reasons: post op r/s 05/14/24 , 08/27/23 Intake Note: Jamari presents in the offie as a follow up for his procedures. CC: Still having digestive issues even after the procedures. States that he also has solid stools and feels like a tearing when he has a BM. States that he gets a pains in the stomach and does not switch his diet up. Occasionally has some blood. Hospice Office Coordinator Required: No Allergies No Known Allergies Allergy (Verified 11/05/24 11:58) HPI HPI post op r/s 05/14/24 , 08/27/23: Details: Assessment & Plan (1) Arthralgia: Code(s): M25.50 - Pain in unspecified joint (2) Bloating symptom: Code(s): R14.0 - Abdominal distension (gaseous) (3) Abdominal pain: Code(s): R10.9 - Unspecified abdominal pain (4) Pre-op examination: Code(s): Z01.818 - Encounter for other preprocedural examination (5) Rectal bleeding: Code(s): K62.5 - Hemorrhage of anus and rectum Plan APPARENTLY HE IS HERE TODAY FOR A NEW COMPLAINT OF RECTAL BLEEDING WITH ABDOMINAL PAIN AND JOINT PAINS. He shows me pictures of his stools with varying amt of BRB in the stools. He feels that taking a pepcid or a gas pill helps his joint pains. He will have pain across the abd in the am when he has to move his bowels. His BM's have been larger than usual and he feels like hall may have another fissure. He has concerns with upper abd pain as well as well lower abdominal pain as above, he is also concerned about a concavity in his upper abdomen that does not seem to respond to diet or exercise. At this point we are going to get the following studies a CT scan of the abdomen and pelvis to see if there is anything like diverticulitis, a slew inflammatory markers including a workup for potential inflammatory arthritis and for inflammatory bowel disease despite the fact that he has not having out right diarrhea, a fecal calprotectin, a RAST allergy panel because of the great deal of bloating, and an EGD/colonoscopy. At this time at least for the moment it seems like the bleeding is subsiding. He tried using the nifedipine Ajay cream but it really burned in irritated his buttocks. For now I encouraged him just to try the hemorrhoid cream as that is likely more soothing. I am really uncertain if there is any new intervention in terms of medication that I can start right now until I have more information. He denies any cardiac or respiratory problems. There are no prior problems with anesthesia or sedation. There are no infectious disease problems. There is no known family history of colon cancer or colon polyps. Return office visit in 3 weeks. Orders: Orders C Reactive Protein Today M25.50 - Pain in unspecified joint Complete Blood Count Auto Diff Today R10.9 - Unspecified abdominal pain Rast Allergen Today R14.0 - Abdominal distension (gaseous) CT abdomen pelvis w IV con Today R10.9 - Unspecified abdominal pain Erythrocyte Sedimentation Rate Today M25.50 - Pain in unspecified joint Rheumatoid Factor Today M25.50 - Pain in unspecified joint EGD/Spencer Combo - GI Use Only Today K62.5 - Hemorrhage of anus and rectum, R10.9 - Unspecified abdominal pain Calprotectin, Fecal Today R10.9 - Unspecified abdominal pain Comprehensive Met. Panel Today R10.9 - Unspecified abdominal pain ELIE Reflex Titer and Pattern Today M25.50 - Pain in unspecified joint Medications: New bisacodyl (Dulcolax (bisacodyl)) 10 mg (2 x 5 mg) PO BEDTIME 2 days 4 tabs 0RF LABS: Laboratory Tests 04/25/23 04/26/23 10:15 05:35 WBC 4.1 L Hgb 13.0 L Hct 39.4 L MCV 96.8 MCH 31.9 Plt Count 154 L Estimated GFR > 60 Total Bilirubin 0.4 AST 19 ALT 17 Alkaline Phosphatase 48 C-Reactive Protein < 0.10 Stool Calprotectin 21 Rheumatoid Factor < 13.0 ELIE Screen NEGATIVE RAST PANEL SHOWS NO SIGNIFICANT FOOD ALLERGIES EGD/ COLONOSCOPY 08/13/2023 Findings: Larynx:normal Esophagus: GE junction at 40 cm, diaphragm hiatus at 40 cm, possible short segment barretts, bx taken from GEJ, and distal, proximal esophagus Stomach: Mild erythema. Biopsies were obtained. Grade 2 flap valve on retroflexed examination of the cardia. Duodenum: Normal bulb and descending duodenum, bx taken Findings: Terminal Ileum-normal, bx taken Random bx taken from right, left and rectum Cecum:normal Ascending Colon: normal Transverse Colon -normal Descending Colon:normal Sigmoid Colon: normal Rectum: Retroflexion with small internal hemorrhoids, grade I Anorectum - normal Impression and Post Procedure Diagnosis: Endoscopy Findings: mild gastritis possible short segment barretts Colonoscopy Findings: internal hemorrhoids Plan: Await Pathology results Repeat Colonoscopy in 10 years or earlier if clinically indicated High fiber diet leaflet avoid straining at stool, epsom salts and sitz bath, anusol supps or cream If bx neg and ongoing sx can consider capsule study or CT enterogram Above findings were reviewed with the patient and relevant handouts were provided if indicated. BIOPSY B): H pylori immunostain is negative with appropriate control. Electronically Signed By: Love Foley 08/19/23 0843 Diagnosis A. Duodenum, biopsy: Duodenal mucosa with preserved villi and no specific change. B. Stomach, biopsy: Gastric antral and body mucosa with minimal chronic inactive gastritis; negative for intestinal metaplasia and dysplasia (see comment). C. Gastroesophageal junction, biopsy: Squamocolumnar mucosa with mild chronic inflammation; negative for intestinal metaplasia and dysplasia. D. Esophagus, distal, biopsy: Squamous mucosa with no specific change; no columnar mucosa present. E. Esophagus, proximal, biopsy: Squamous mucosa with no specific change; no columnar mucosa present TODAY'S VISIT ON LICENSE OF [facility] Medical History (Updated 11/05/24 @ 13:44 by LINSEY Llanes) Chronic idiopathic constipation Anal pain Bloating symptom Pre-op examination Physical exam Jaw closure abnormality Post traumatic stress disorder (PTSD) Pancreatitis GERD (gastroesophageal reflux disease) History of broken finger Surgical History H/O knee surgery History of endoscopy History of colonoscopy No pertinent past surgical history Family History Mother No problems noted. Father No problems noted. 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 Cognitive needs: No Hearing needs: No Vision needs: No Review of Systems Const Denies fatigue, Denies fever(s), Denies night sweats, Denies poor appetite and Denies weight loss ENT Reports Normal hearing present, Denies dental pain, Denies dysphagia, Denies hearing loss, Denies mouth pain, Denies odynophagia, Denies throat swelling, Denies tongue swelling and Reports other (Dentition adequate) Card Reports no additional complaints Resp Reports no additional complaints GI Details: Denies abdominal pain, Denies melena, Reports bloating, Denies hematochezia, Denies constipation, Denies GI cramping, Denies dysphagia, Denies excessive flatus, Denies early satiety, Denies heartburn, Denies diarrhea, Denies nausea, Denies odynophagia, Denies vomiting and Denies hematemesis Skin/Breast Denies pruritus, Denies lesions, Denies rash and Denies jaundice Neuro Reports Normal hearing present and Denies Abnormal speech present Endo Denies fatigue Aller/Immun Denies throat swelling and Denies tongue swelling Physical Exam Vital Signs: Last Vital Signs Pulse 64 11/05/24 11:58 BP 106/57 L 11/05/24 11:58 BMI result Body Mass Index 33.6 Const General: cooperative, no acute distress, well developed and well groomed Nutritional Appearance: average body habitus and well nourished Orientation/consciousness: oriented to person, oriented to place and oriented to time Limitations: No language barrier HEENT Head: Yes normocephalic and Yes atraumatic Eyes General: appearance normal, both eyes and all related structures Pupils: Equal, round and reactive pupils present Neck Neck: Yes normal visual inspection and Yes no lymphadenopathy Thyroid: Thyroid normal Resp Effort & Inspection: normal respiratory effort and able to speak in complete sentences Auscultation: clear to auscultation bilaterally Cardio Rate: regular rate Rhythm: regular rhythm Heart sounds: Normal, physiologic split S2 sound present Peripheral pulses: radial pulses present and posterior tibial pulses present GI Inspection: No distended and No Abdominal panniculus present Palpation (GI): Soft to palpation, nontender, no guarding, not rigid and No hepatosplenomegaly present Percussion: Yes normal to percussion Auscultation: normal bowel sounds Rectal Exam - Male: Yes deferred Skin General skin exam: no rashes or lesions noted, turgor normal, skin not dry, no jaundice, No spider nevi and no striae Rashes: no rashes Nails: normal Neuro General: oriented to person, oriented to place and oriented to time Cranial nerves: Yes Equal, round and reactive pupils present and Yes Normal hearing present Speech: No Abnormal speech present Extrem General: Yes normal to inspection, No clubbing, No cyanosis and No edema Psych Appearance: grossly normal and well kempt Mental Status: mental status grossly normal Speech and movement: Normal speech and movement present Affect: normal affect Attitude: cooperative Thought process: Normal thought process present and not confabulating Thought content: Normal thought content present Insight: Fair insight present (Psych) Judgement: Fair judgement present (Psych) Assessment & Plan Assessment & Plan (1) Hemorrhoids: Code(s): K64.9 - Unspecified hemorrhoids Category: Medical (2) Abdominal bloating: Code(s): R14.0 - Abdominal distension (gaseous) Category: Medical Plan - The patient is a 44 year old male presenting for follow-up after EGD/colonoscopy. These were ordered because he had an unusual presentation of widespread body joint pain that seem to happen whenever he would have bloating or digestive upset - Joint discomfort primarily occurs along with digestive disturbances and is described as transient, primarily affecting the knees and hips. - The pain is unrelated to consistent physical activity or motion patterns, and subsides with dietary management. - GERD symptoms have been confirmed with endoscopic findings indicating esophageal irritation, but no Liu's esophagus. - Extensive testing, including for inflammation and autoimmune disorders, has returned normal results, with no significant food allergies identified. - The patient has noted relief of symptoms following dietary modifications and fasting. - he is agreeable to a 10 year follow-up for colonoscopy. The procedure was well tolerated. The results were explained and the patient is agreeable to the follow-up interval as stated. The bowel pattern has returned to normal. Education was provided to tell any 1st degree relatives about their findings to be sure that they are screened by age 45. Educated that they will be put on a recall list when it is time for their repeat scope but should they move out of state or away from the hospital they will need to remember along with their primary to repeat the procedure in a timely fashion to avoid any adverse complications. Coding Level of Care Code Est Pt Level 3 (21169) Diagnoses Hemorrhoids K64.9 Abdominal bloating R14.0
[2024-11-05 11:58] VITALS: BP 106/57; PULSE 64; BMI 33.6
--- OUTSIDE RECORDS SUMMARY | 2024-11-05 16:50 | XMS_ITS | Patient Health Record ---
Author Organization [facility] Address [address] [facility] [place] [address] Care Team Providers Care Precast Worker Name Role Phone Sunshine MARY, Jaquan Primary Care Provider Unavaila Benigno Andres Unavailable [phone] Reason For Referral No Information Plan Of Treatment No Information Insurance Providers Payer Name Payer Address Payer Phone Subscriber Number Group Number Insured Name Patient Relationship to Insured Coverage Start Date Coverage End Date Medicare National Govt Sv[employer] [address] [place] [address] [phone] Jamari Dunlap Self - patient is the insured
--- OUTSIDE RECORDS SUMMARY | 2024-11-05 16:50 | XMS_ITS | Clinical Summary ---
Author Organization [facility] Address [address] [place] [address] [place] [phone] Phone Care Team Providers Care Suit Maker Name Role Phone Agapito Mclaughlin MD Primary Care Provider Allergies No known active allergies Medications methocarbamol (ROBAXIN) 500 MG tablet Take 1 tablet (500 mg total) by mouth 3 (three) times a day. 60 tablet 11/02/2016 Active Social History Tobacco Use Types Packs/Day Years Used Date Smoking Tobacco: Never Alcohol Use Standard Drinks/Week Comments No 0 (1 standard drink = 0.6 oz pur e alcohol) Education Answer Date Recorded Are you interested in more education? Not on francine e 06/08/2022 Are you concerned about learning? Not on file 06/08/2022 No 06/08/2022 No 06/08/2022 Digital Access Answer Date Recorded No 07/09/2022 No 07/09/2022 No 07/09/2022 Reliable internet access at home? Not on file 07/09/2022 Device with a working camera? Not on file Sex and Gender Information Value Date Recorded Sex Assigned at Not on file Legal Sex Male 2:57 PM EDT Gender Identity Not on file Sexual Orientation Not on file Last Filed Vital Signs Vital Sign Reading Time Taken Comments Blood Pressure 161/97 08/03/2016 1:49 PM EDT Pulse 68 08/03/2016 1:49 PM EDT Temperature - - Respiratory Rate - - Oxygen Saturation 100% 08/03/2016 1:49 PM EDT Inhaled Oxygen Concentration - - Weight - - Height - - Body Mass Index - - Plan of Treatment Health Maintenance Due Date Last Done Comments LIPID PANEL 1980 DEPRESSION SCREENING 1992 HEPATITIS C SCREENING 1998 HIV ONE-TIME SCREENING (18-6 5 YEARS) 1998 INFLUENZA VACCINE (#1) 2024 12/06/2011 COVID-19 VACCINE (3 - 2024-2 6 season) 2024 08/13/2020, 07/22/2020 Adult Td,Tdap Booster 08/05/2029 08/06/2019 , 12/06/2011 PNEUMOCOCCAL VACCINES (0-49 years) Aged Out 07/29/2016 No longer eligible b ased on patient's age to complete this topic SMOKING STATUS SCREENING (On ce After 26 Yrs) Completed 08/03/2016 HEPATITIS A VACCINES Aged Out No long er eligible based on patient's age to complete this topic HIB VACCINES Aged Out No longer eligi ble based on patient's age to complete this topic MENINGOCOCCAL VACCINES (ACWY) Aged Out No longer eligible based on patient's age to complete this topic MENINGOCOCCAL VACCINES (B) Aged Out N o longer eligible based on patient's age to complete this topic Medical Devices Not on file Insurance MEDICARE PART A & [place] [id number] MEDICARE PART A & B [facility] [place] MED[place] PART A & B [facility] & [place]IC[place] PART A & B [facility] PART [facility] & [facility] & B [facility] MEDICARE PART A & B [facility] Care Teams Suit Maker Relationship Specialty Start Date End Date Agapito Mclaughlin MD [address] [place] [address] [place] [id number] PCP - General Internal Medicine 06/22/16 Additional Source Comments The information contained in this document represents components of the legal health record. It is not the complete legal health record.[facility]
== END 2024-11-05 12:46 | disposition home or self-care (01) ==
LOC: HO.HGI 11:55
PROVIDERS: PCP Internal Medicine; Visit Provider Nurse Practitioner
DX: K64.9 Unspecified hemorrhoids (principal); R14.0 Abdominal distension (gaseous)
CPT/HCPCS: 99213

== ENCOUNTER → 2024-11-05 11:54 | Outpatient (BNVA) | payer MEDICARE, MEDICAID, SELFPAY | PROVIDERS: PCP Internal Medicine; Visit Provider Nurse Practitioner | DX: K64.9 Unspecified hemorrhoids (principal); R14.0 Abdominal distension (gaseous) | CPT/HCPCS: 99212 ==